=== PATIENT | male | born 1985 | race Caucasian/White ===

== ENCOUNTER 2024-10-09 10:58 | Outpatient (CLI) | payer BC, SELFPAY | END 2024-10-09 10:59 | disposition home or self-care (01) | PROVIDERS: Visit Provider Family Medicine | DX: E29.1 Testicular hypofunction (principal) | CPT/HCPCS: 84270; 84402; 84403 ==

== ENCOUNTER 2024-11-05 08:48 | Outpatient (CLI) | payer BC, SELFPAY | END 2024-11-05 08:49 | disposition home or self-care (01) | LOC: NFLDREF 11-09 18:58 | PROVIDERS: PCP Family Medicine; Visit Provider Family Medicine | DX: E29.1 Testicular hypofunction (principal) | CPT/HCPCS: 84270; 84402; 84403 ==

== ENCOUNTER 2024-11-19 08:48 | Outpatient (CLI) | payer BC, SELFPAY ==
--- NOTE | 2024-11-19 09:00 | CRLHL7_ITS ---
For Patients: As a result of the Cures Act, medical imaging exams and procedure reports are released immediately into your electronic medical record. You may view this report before your referring provider. If you have questions, please contact your health care provider. Indication: NASAL CONGESTION, DEVIATED SEPTUM Technique: Performed without IV contrast Comparison: None available Findings: Frontal sinuses: Mild mucosal thickening is present within the inferior frontal sinuses. Ethmoid sinuses: Moderate patchy opacification of the ethmoid sinuses noted bilaterally. Maxillary sinuses: Mucosal thickening within both maxillary sinuses noted along with small mucous retention cysts. The maxillary sinus drainage pathways are obstructed on both sides. Sphenoid sinuses: Mild mucosal thickening is present in both sphenoid sinuses along with a mucous retention cyst within the left sphenoid sinus measuring 1 cm. Obstructed sphenoethmoidal recesses. Nasal Cavity: Rightward curvature nasal septum. Mucous is present within the nasal cavity. Can not exclude papilloma within the left side of the nasopharynx. Mild subluxation at the TMJs. The visualized portions of the orbits, intracranial contents and upper soft tissue neck are grossly negative. Impression: 1. Bilateral sinus disease with obstruction of the sinus drainage pathways. 2. Rightward curvature of the nasal septum. Can not exclude nasal polyposis. Please note that all CT scans at this facility use dose modulation, iterative reconstruction, and/or weight-based dosing when appropriate to reduce radiation dose to as low as reasonably achievable. Dictated by Marquise Trivedi MD @ 11/19/2024 9:20:26 AM (Electronically Signed)
--- NOTE | 2024-11-19 09:15 | CRLHL7_ITS ---
For Patients: As a result of the Century Cures Act, medical imaging exams and procedure reports are released immediately into your electronic medical record. You may view this report before your referring provider. If you have questions, please contact your health care provider. Technique: Double-contrast esophagram performed after the uneventful administration of effervescent crystals and thick barium followed by thin barium. Fluoroscopy time 0.44 minutes. Indication: GERD, DYSPHAGIA, REFLUX Comparison: None. Findings: Esophagus: Normal morphology and motility. No stricture or mass. Gastroesophageal reflux: Spontaneous reflux noted. No hernia. Impression: Spontaneous gastroesophageal reflux. Normal motility. No hernia. No acute inflammation. Dictated by Marquise Trivedi MD @ 11/19/2024 11:23:55 AM (Electronically Signed)
== END 2024-11-19 08:49 | disposition home or self-care (01) ==
LOC: CT 08:49
PROVIDERS: PCP Family Medicine; Visit Provider Otolaryngology
DX: R09.81 Nasal congestion (principal); J34.2 Deviated nasal septum; R13.10 Dysphagia, unspecified; K21.9 Gastro-esophageal reflux disease without esophagitis
CPT/HCPCS: 70486; 74221

== ENCOUNTER 2024-12-15 12:48 | Outpatient (CLI) | payer BC, SELFPAY ==
--- NOTE | 2025-01-05 11:37 | W.PM.SLEEP ---
Sleep Study Details Details Interpreting Provider: Josie Date of Sleep Study: 12/15/24 Sleep Study Details: STUDY TYPE:? Home unattended ? BMI:? 44.3 ORDERING PROVIDER:? Josie INDICATION:? Concerned about sleep apnea ? SLEEP SUMMARY:? 309 minutes monitored RESPIRATORY SUMMARY:? AHI 32.1 per rule 1A, 24.3 per CMS guideline Low oxygen 82 4.8% of study oxygen less than 90% Snoring 65.5% PERIODIC LIMB MOVEMENTS OF SLEEP:? Not recorded CARDIAC:? Range 65-109, mean 85.6 beats per minute IMPRESSION:? Severe obstructive sleep apnea RECOMMENDATION: Weight loss is recommended. In addition would recommend an AutoSet CPAP pressure 4-17.
== END 2024-12-15 12:49 | disposition home or self-care (01) ==
LOC: SLEEP 12:48
PROVIDERS: PCP Family Medicine; Visit Provider Otolaryngology
DX: G47.33 Obstructive sleep apnea (adult) (pediatric) (principal)
CPT/HCPCS: 95806

== ENCOUNTER 2025-02-01 09:30 | Outpatient (CLI) | payer BC, SELFPAY | END 2025-02-01 09:31 | disposition home or self-care (01) | LOC: LKVREF 09:32 | PROVIDERS: PCP Family Medicine; Visit Provider Family Medicine | DX: Z01.818 Encounter for other preprocedural examination (principal) | CPT/HCPCS: 80048 ==

== ENCOUNTER 2025-02-12 08:31 | Day surgery (SDC) | payer BC, SELFPAY ==
[2025-02-12] VITALS (16 sets, daily range): BP systolic 104–144; BP diastolic 59–111; PULSE 80–100; RESP 13–26; TEMP 36.4–37.2; O2SAT 94–98; BMI 48.4
[2025-02-12] MEDS: LACTATED RINGERS 1000 ML 1,000 ML 100 ML IV (08:40)
[2025-02-12] MEDS: OXYMETAZOLINE 0.05% NASAL SPRAY 2 SPRAY NOSTRIL-B (09:30)
[2025-02-12] MEDS: SODIUM CHLORIDE 0.9 % (FLUSH) 10 ML SYRINGE IVF (10:16)
[2025-02-12] MEDS: MUPIROCIN 1 GM PACKET 1 APPLIC TOPICAL (10:32)
[2025-02-12] MEDS: AYR SALINE NASAL GEL 1 APPLIC NOSTRIL-B (10:33)
[2025-02-12] MEDS: BUPIVACAINE 0.5%/EPINEPHRINE 0.9 MG (30.9 ML) INJECTION (10:51)
--- NOTE | 2025-02-12 11:02 | P.ENTPROC_ITS ---
Procedure Note Date of procedure: 02/12/25 Procedure: Preop diagnosis chronic bilateral ethmoid and maxillary sinus disease, deviated septum, right inferior turbinate hypertrophy Postoperative diagnosis same Procedure endoscopic bilateral maxillary antrostomies with tissue removal, end oscopic bilateral complete ethmoidectomies, nasal septoplasty, submucous partial resection right inferior turbinate Note that image guidance and 0 degree endoscopy was used throughout the procedure Under general endotracheal anesthesia patient was prepped draped usual fashion and the nose decongested with cocaine pledgets and injected. A right hemitransfixion incision was made left anterior and posterior tunnels were created. A vertical incision was made through the cartilage and a right posterior tunnel created. Posterior deflected portions of septal bone were resected and a large piece trimmed returned to intraseptal space. The large left premaxillary wing deformity was removed with a chisel. Normal amount of cartilage was left anteriorly as there was no resection therefore dorsal and tip support. The hemitransfixion was closed with 2 4-0 chromic sutures. A stab incision was made in the anterior of the right inferior turbinate a tunnel created with a Sony dissector. The raudel bone was outfractured and a conservative anterior submucous resection performed. The Coblation was used for hemostasis and to cauterize intramurally along the inferior 10%. The inferior 4th of the left uncinate process was taken down exposing natural ostium to maxillary sinus which was occluded by polyp tissue. This polyp tissue was removed and 9 mm antrostomy created. Additional tissue was removed from the floor of the sinus with an up-biting ethmoid forceps. The ethmoid bulla was taken down and dissection carried out in anterior to posterior direction removing a moderate to large amount of polypoid tissue. Both of these procedures were repeated on the right side in identical fashion with identical findings. Silastic stents were secured on either side the septum with a 3-0 nylon and Merocel packing was placed in the middle meatus on each side. Prior to extubation there is a moderate amount of bleeding well the patient was fighting the tube. Additional dissolvable packing was placed prior to extubation on each side. Specimens were sent to pathology. Blood loss was 20 mL. Surgeon: Ezekiel Galindo MD
--- NOTE | 2025-02-12 11:23 | P.ANES_ITS ---
Anesthesia Charges Start Date/Time Anesthesia Start Date: 02/12/25 Anesthesia Start Time: 10:05 Stop Date/Time Anesthesia Stop Date: 02/12/25 Anesthesia Stop Time: 11:09 Coding CPT Codes CPT Codes: ANESTH NOSE/SINUS SURGERY - 98952 ([id number]) P3 - PATIENT W/SEVERE SYS DISEASE, QK - CHEMICAL LABORATORY TECHNICIAN 2-4 CNCRNT ANES PROC, QX - HEALTH WORKER SVC W/ MD MED DIRECTION
--- NOTE | 2025-02-12 11:23 | W.ANESCHARGE ---
Anesthesia Charges Start Date/Time Anesthesia Start Date: 02/12/25 Anesthesia Start Time: 10:05 Stop Date/Time Anesthesia Stop Date: 02/12/25 Anesthesia Stop Time: 11:09 Coding CPT Codes CPT Codes: ANESTH NOSE/SINUS SURGERY - 75455 ([id number]) P3 - PATIENT W/SEVERE SYS DISEASE, QK - UTILITY LOCATOR 2-4 CNCRNT ANES PROC, QX - CARDIOLOGY ASSOCIATE SVC W/ MD MED DIRECTION
--- NOTE | 2025-02-12 11:56 | SUR.PHASEI ---
patient met discharge criteria per anesthesia
--- NOTE | 2025-02-12 12:14 | P.ANES_ITS ---
Anesthesia Charges Start Date/Time Anesthesia Start Date: 02/12/25 Anesthesia Start Time: 10:05 Stop Date/Time Anesthesia Stop Date: 02/12/25 Anesthesia Stop Time: 11:09 Coding CPT Codes CPT Codes: ANESTH NOSE/SINUS SURGERY - 79057 ([id number]) P3 - PATIENT W/SEVERE SYS DISEASE, QK - FIRE BOAT ENGINEER 2-4 CNCRNT ANES PROC, QX - LISW SVC W/ MD MED DIRECTION
--- NOTE | 2025-02-12 12:14 | W.ANESCHARGE ---
Anesthesia Charges Start Date/Time Anesthesia Start Date: 02/12/25 Anesthesia Start Time: 10:05 Stop Date/Time Anesthesia Stop Date: 02/12/25 Anesthesia Stop Time: 11:09 Coding CPT Codes CPT Codes: ANESTH NOSE/SINUS SURGERY - 07286 ([id number]) P3 - PATIENT W/SEVERE SYS DISEASE, QK - SENIOR PHP WEB DEVELOPER 2-4 CNCRNT ANES PROC, QX - SALES ACCOUNT REPRESENTATIVE SVC W/ MD MED DIRECTION
[2025-02-12] MEDS: IBUPROFEN 200 MG TABLET PO (12:22)
== END 2025-02-12 13:24 | disposition home or self-care (01) ==
LOC: OR 08:32
PROVIDERS: PCP Family Medicine; Visit Provider Otolaryngology
PROC: (CPT 31231; principal; 2025-02-12 09:45)
DX: J34.2 Deviated nasal septum (principal); J32.2 Chronic ethmoidal sinusitis; J32.0 Chronic maxillary sinusitis; J34.3 Hypertrophy of nasal turbinates
CPT/HCPCS: 31267; 31255; 30520; 30140; 00160; 88305; 88311; A9270; J0330; J1100; J2250; J2405; J2704; J3010; J3490; J7120

== ENCOUNTER 2025-05-16 18:01 | Inpatient (IN) | payer BC, SELFPAY ==
--- OUTSIDE RECORDS SUMMARY | 2025-01-22 04:29 | XMS_ITS | Continuity of Care Document ---
Author Organization [facility] Address [address] [address] [place] [address] Phone Care Team Providers Care Community Relations Assistant Name Role Phone Selwyn Reina MD, Camilo Unavailable Unavailabl e Allergies, Adverse Reactions, Alerts Substance Reaction Status Criticality No Known Allergies Active No Inform ation Medications Medication Instructions Dosage Effective Dates (start - stop) Status Comments omeprazole 40 mg capsule,delayed release take 1 capsule by oral route 2 times every day before a meal 40 MG - Active Advil 200 mg tablet take 1 tablet by ora l route every 6 hours as needed with food 200 MG - Active omeprazole 20 mg tablet,delayed release take 1 capsule by oral route every day 1 capsule - Active Procedures Procedure Date New Level 4 Moderate Advance Directives Directive Yes / No Effective Date File Name No Information Encounters Encounter Description Practice Location Reason(s) For Visit Diagnoses Date Provider Providers Copied on Encounter [facility], [address] [address], [place], [id number], [place] tel:[phone] [facility] No Information 5 Selwyn Page. [address] [facility], [place], [id number] , [place]. tel:[phone] New Level 4 Moderate [facility], [address] [address], [place], [place], [address], [place] tel:[phone] [facility] GI Symptoms or Concerns (chief complaint) Chronic GERDBurpingEsophage al dysphagia Aminata Buckner. [address] [facility], [facility] [address], [place], [place], [address] , [place]. tel:[phone] Referring Provider: Ezekiel Sarkar MD, [address] [place], [address]. tel:[phone] [facility], [address] [address], [place], [place], [address], [place] tel:[phone] [facility] GI Symptoms or Concerns (chief complaint) No Information 5 Aminata Buckner. [address] [facility], [facility] [address], [place], [place], [id number] , [place]. tel:[phone] [facility], [address] [address], [place], [place], [address], [place] tel:[phone] [facility] No Information Selwyn Page. [address] [facility], [facility] [address], [facility] [place] [place], [address] , [place]. tel: [phone] Family History Family Member Type Diagnosis Age At Onset Mother Problem Diabetes mellitus Immunizations Vaccine Date Status Comments tetanus toxoid, reduced diphtheria toxoid, and acellular pertussis vaccine, adsorbed administered Note: [facility] bi-direct ional interface ; Source: Other Registry Payers Payer name Insurance type Covered constitution party ID Authoriza tion(s) [facility] [id number] Social History Type Description Quantity Date Captured Comments Sex Male Smoking Status No Information Chief Complaint And Reason For Visit No Information Reason For Referral Reason For Referral No Information History Of Present Illness Encounter Date Complaint History Of Prese nt Illness GI Symptoms or Concerns This is a 39-year-old male who presents as a new patient for acid reflux disease. Patient has a longstanding history of acid reflux for more than 5 years. Patient reports reflux on a regular basis in the morning as well as in the evening. Patient also reports burping, belching, regurgitation. Patient does note food getting stuck in the throat region which she sometimes has to regurgitate. Patient denies any abdominal pain, nausea, vomiting. There is no recent weight loss. Patient denies any changes in his bowel habits. There is no hematochezia or melena. There is no family history of colon cancer or esophageal cancer. Patient is otherwise doing well and reports no other medical problems. He denies smoking, alcohol, marijuana usage. Patient is currently on omeprazole 20 milligrams once daily without relief of his symptoms. He did have an upper endoscopy while in [place] about 1-2 years ago which showed possible esophagitis. Patient did have a recent esophagram done at [facility] GI Symptoms or Concerns Functional Status Date Functional Assessmen t No Information Instructions Date Instruction Additional Infor [facility] -start omeprazole 40 mg twice daily-attain recent EGD-gerd diet and liefstyle changes discussed with patient-pt wishes to defer repeat egd at this point-f/u in 3 months. if sx continue, will proceed with egd Related to Chronic GERD Assessments Type Assessment Date No Information Patient Care Teams Name Effective Dates (start - stop) Status Members No Information
--- OUTSIDE RECORDS SUMMARY | 2025-01-22 04:29 | XMS_ITS | Continuity of Care Document ---
Author Organization [facility] Address [address] [address] [place] [address] Phone Care Team Providers Care Main Line Assembler Name Role Phone Selwyn Reina MD, Camilo [...] Diagnoses Date Provider Providers Copied on Encounter [facility], [address] [address], [place], [id number], [place] tel:[phone] [facility] No Information 5 Selwyn Page. [address] [facility], [address], [place], [id number] , [place]. tel:[phone] New Level 4 Moderate [facility], [address] [address], [place], [place], [address], [place] tel:[phone] [facility] GI Symptoms or Concerns (chief complaint) Chronic GERDBurpingEsophage al dysphagia Aminata Buckner. [address] [facility], [facility] [[email or web address] [address], [place], [place], [id number] , [place]. tel:[phone] Referring Provider: Ezekiel Sarkar MD, [address] [place], [address]. tel:[phone] [facility], [address] [address], [place], [place], [address], [place] tel:[phone] [facility] GI Symptoms or Concerns (chief complaint) No Information 5 Aminata Buckner. [address] [facility], [facility] [[email or web address] [address], [place], [place], [address] , [place]. tel:[phone] [facility], [address] [address], [place], [place], [address], [place] tel:[phone] [facility] No Information Selwyn Page. [address] [facility], [facility] [[email or web address] [address], [facility] [place] [place], [id number] , [place]. tel: [phone] Family History Family Member Type Diagnosis Age At Onset Mother Problem Diabetes mellitus Immunizations Vaccine Date Status Comments tetanus toxoid, reduced diphtheria toxoid, and acellular pertussis vaccine, adsorbed administered Note: [facility] bi-direct ional interface ; Source: Other Registry Payers Payer name Insurance type Covered constitution party ID Authoriza tion(s) [facility] [id number] Social History Type Description Quantity Date Captured [...] did have an upper endoscopy while in [place] about 1-2 years ago which showed possible esophagitis. Patient did have a recent esophagram done at [facility] GI Symptoms or Concerns Functional Status Date Functional Assessmen t No Information Instructions Date Instruction Additional Infor [facility] -start omeprazole 40 mg twice daily-attain recent EGD-gerd diet and liefstyle changes discussed with patient-pt wishes to defer repeat egd at this point-f/u in 3 months. if sx continue, will proceed with egd Related to Chronic GERD Assessments Type Assessment Date No Information Patient Care Teams Name Effective Dates (start - stop) Status Members No Information
--- OUTSIDE RECORDS SUMMARY | 2025-05-13 09:18 | XMS_ITS | Continuity of Care Document ---
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 Name Role Phone Mark Lozano MD Unavailable Unavailable Allergies, Adverse Reactions, Alerts Substance Reaction Status Criticality No Known Allergies Active No Inform ation Medications Medication Instructions Dosage Effective Dates (start - stop) Status Comments Vitamin D3 25 mcg (1,000 unit) capsule take 1 capsule by oral route every day 1 capsule - Active gabapentin 800 mg tablet take 1 tablet by oral route 3 times every day 800 MG - Active methocarbamol 750 mg tablet take 1 tablet by oral route every 8 hours 750 MG - Active DME BLOOD PRESSURE MONITOR - Active TESTOSTERONE (unknown strength) apply by transdermal route every day (1 tube = 50 mg) in the morning to shoulders and/or upper arms divided evenly between areas Not Available - Active Procedures Procedure Date SYST BP LT 130 MM HG DIAST BP < 80 MM HG PREV VISIT, EST, AGE 40-64 SYST BP 140+ MM HG6 IT DIAST BP 90+ MM HG OFFICE/OUTPATIENT VISIT, EST SYST BP GE 130 - 139MM HG DIAST BP 80-89 MM HG OFFICE/OUTPATIENT VISIT, EST SYST BP GE 130 - 139MM HG DIAST BP 80-89 MM HG OFFICE/OUTPATIENT VISIT, EST DIAST BP 90+ MM HG SYST BP 140+ MM HG6 IT OFFICE/OUTPATIENT VISIT, EST Telehealth Video Visit FAMILY PSYTX W/PATIENT Telehealth Video Visit PSYTX PT&/FAMILY 60 MINUTES Telehealth Video Visit PSYTX PT&/FAMILY 60 MINUTES Telehealth Video Visit PSYTX PT&/FAMILY 45 MINUTES Telehealth Video Visit PSYTX PT&/FAMILY 60 MINUTES Periodontal maintenance Telehealth Audio Visit OFFICE/OUTPATIENT VISIT, EST OFFICE/OUTPATIENT VISIT, EST Encounter Error OFFICE/OUTPATIENT VISIT, EST OFFICE/OUTPATIENT VISIT, EST Telehealth Audio Visit OFFICE/OUTPATIENT VISIT, EST PSYTX PT&/FAMILY 45 MINUTES OFFICE/OUTPATIENT VISIT, EST Telehealth Audio Visit Telehealth Audio Visit Telehealth Audio Visit OFFICE/OUTPATIENT VISIT, EST Telehealth Audio Visit OFFICE/OUTPATIENT VISIT, EST PSYTX PT&/FAMILY 60 MINUTES Resin-1 surface, posterior Treatment Complete Resin-1 surface, posterior Resin-1 surface, posterior Periodontal Re-eval OFFICE/OUTPATIENT VISIT, EST ELECTROCARDIOGRAM, WITH INTERP & REPORT Telehealth Audio Visit OFFICE/OUTPATIENT VISIT, EST PSYTX PT&/FAMILY 45 MINUTES Post Op Check Telehealth Audio Visit OFFICE/OUTPATIENT VISIT, EST Resin-1 surface, posterior Treatment Complete Resin-1 surface, posterior Perio scale&root pln-4+per quad 021 Perio scale&root pln-4+per quad 021 Perio scale&root pln-4+per quad 021 Perio scale&root pln-4+per quad 021 Intraoral Full Mouth Xrays Comp oral eval-new/estab pat No Sealant Needed/Excluded PSYTX PT&/FAMILY 45 MINUTES Telehealth Audio Visit OFFICE/OUTPATIENT VISIT, EST OFFICE/OUTPATIENT VISIT, EST Telehealth Audio Visit PSYCH DIAG EVAL W/MED SRVCS Telehealth Audio Visit OFFICE/OUTPATIENT VISIT, EST PSYCH DIAGNOSTIC EVALUATION OFFICE/OUTPATIENT VISIT, EST OFFICE/OUTPATIENT VISIT, EST [facility] PREV VISIT, EST, AGE 18-39 Charge for additional DX capture only De Telehealth Audio Visit OFFICE/OUTPATIENT VISIT, EST [facility] Telehealth Video Visit OFFICE/OUTPATIENT VISIT, NEW Advance Directives Directive Yes / No Effective Date File Name No Information Encounters Encounter Description Practice Location Reason(s) For Visit Diagnoses Date Provider Providers Copied on Encounter Jai Silva e, [address] [address], [place], [place], [id number] , [place] tel:[phone] [facility] No Information 5 Marta Flores. [address] [place], [place], [id number], [place]. [phone] PREV VISIT, EST, AGE 40-64 [facility], [address], [place], [place], [address] , [place] tel: [phone] [place] preventive exam (chief complaint) Body mass index (BMI) 40.0-44.9, adultHypogona dism in maleLow testosteroneE rectile dysfunction, unspecified erectile dysfunction typeOther obesity due to excess caloriesBack pain with history of spinal surgeryEssent ial hypertensionE ncounter for adult health check-up 4 Marta Flores. [address] [place] [address], [id number], [place]. tel:[phone] Referring Provider: Mark Lozano, [address] [place] [address], [address]. [phone] OFFICE/OUTPA TIENT VISIT, EST [facility], [address], [place], [place], [address] , [place] tel:[phone] Wilfredo acute illness (chief complaint) Erectile dysfunction, unspecified erectile dysfunction typeUrinary dribblingPain , joint, knee, leftGallstone sOther obesity due to excess caloriesBody mass index (BMI) 45.0-49.9, adultElevated blood pressure reading 4 Elam-Katty ones Eulalio. [address] [place] [address], [id number], [place]. [phone] Referring Provider: Eulalio Elam-Katty ones, [address] [place] [address], [address]. tel:[phone] [facility], [address], [place], [place], [address] , [place] tel:[phone] Wilfredo Gallstones 3 ELENA OWUSU. [address] [place] [address], [id number], [place]. tel:[phone] Referring Provider: FRANCOISE Vazquez, [address] [place] [address], [address]. tel:[phone] OFFICE/OUTPA TIENT VISIT, EST [facility], [address], [place], [place], [address] , [place] tel:[phone] Wilfredo gallstones/vi t d def (chief complaint) Vitamin D deficiencyPer sandra history of gallstones 3 ELENA OWUSU. [address] [place] [address], [id number], [place]. tel:[phone] Referring Provider: FRANCOISE PARKER E, [address] [place] [address], [address]. tel:[phone] OFFICE/OUTPA TIENT VISIT, EST [facility], [address], [place], [place], [address] , [place] [phone] [place] Abdominal Pain / GERD (chief complaint) Symptomatic cholelithiasi sLow testosterone in male 3 Annel Bruno. [address] [place] [address], [id number], [place]. tel:[phone] Referring Provider: Kiana Hi, [address] [place] [address], [address]. tel:[phone] [facility], [address], [place], [place], [address] , [place] [phone] [place] PrediabetesVi tamin D deficiency 3 Joshua Lares. [address] [place] [address], [id number], [place]. tel:[phone] OFFICE/OUTPA TIENT VISIT, EST [facility], [address], [place], [place], [id number] , [place] [phone] Wilfredo Referrals (chief complaint) Morbid obesityBack pain with history of spinal surgeryEssent ial hypertensionL ow testosterone in malePeriphera l polyneuropath y Oct- 3 Joshua Lares. [address] [place] [address], [id number], [place]. tel:[phone] Referring Provider: Luda Lewis, [address] [facility], [place], [address]. tel:[phone] [facility], [address], [place], [place], [address] , [place] tel:[phone] [place] Low testosterone in maleS/P vasectomy 2 ELENA OWUSU. [address] [place], [place], [id number], [place]. tel:[phone] [facility], [address], [place], [place], [address] , [place] tel: [phone] [place] No Information 1 Joshua Lares. [address] [place], [place], [address], [place]. tel:[phone] FAMILY PSYTX W/PATIENT [facility], [address], [place], [place], [address] , [place] tel: [phone] [place] Anxiety and depression Mar- 1 LIZZY SOLORIO. [address] [place], [place], [id number], [place]. tel:[phone] PSYTX PT&/FAMILY 60 MINUTES [facility], [address], [place], [place], [address] , [place] tel:[phone] [place] Anxiety and depression Mar- 1 LIZZY SOLORIO. [address] [place], [place], [address], [place]. tel:[phone] PSYTX PT&/FAMILY 60 MINUTES [facility], [address], [place], [place], [address] , [place] [phone] [place] Anxiety and depression Feb- 1 LIZZY SOLORIO. [address], [place], [place], [id number], [place]. tel:[phone] PSYTX PT&/FAMILY 45 MINUTES [facility], [address], [place], [place], [address] , [place] tel:[phone] [place] Anxiety and depression 1 LIZZY SOLORIO. [address] [place], [place], [address], [place]. tel:[phone] Referring Provider: OSMIN BALL, [address] [place], [address]. tel:[phone] PSYTX PT&/FAMILY 60 MINUTES [facility], [address], [place], [place], [address] , [place] tel:[phone] [place] Anxiety and depression 1 LIZZY SOLORIO. [address] [place], [place], [address], [place]. tel:[phone] Referring Provider: OSMIN BALL, [address] [place], [address]. tel:[phone] [facility], [address], [place], [place], [address] , [place] [phone] [facility] Encounter for dental exam and cleaning w/o abnormal findings 1 Sky James. [address] [place], [id number], [place]. tel:[phone] Referring Provider: MANI MANCINI, [address], [address]. tel:[phone] OFFICE/OUTPA TIENT VISIT, EST [facility], [address], [place], [place], [address] , [place] tel:[phone] [place] MED CHECK (chief complaint) Anxiety and depression 1 MICHAEL MITCHELL. [address] [place], [place], [address], [place]. tel:[phone] Referring Provider: STEPHEN RODRIGUEZ, [address] [place], [address]. tel:[phone] OFFICE/OUTPA TIENT VISIT, EST [facility], [address], [place], [place], [address] , [place] tel:[phone] Wilfredo chronic low back pain (chief complaint)obe se (chief complaint) Back pain with history of spinal surgeryElevat ed BP without diagnosis of hypertensionM orbid obesity 1 ELENA OWUSU. [address] [place], [place], [id number], [place]. tel:[phone] Referring Provider: FRANCOISE Vazquez, [address] [place] [address], [address]. tel:[phone] [facility], [address], [place], [place], [address] , [place] [phone] [place] No Information 1 LIZZY SOLORIO. [address] [place], [place], [id number], [place]. tel:[phone] OFFICE/OUTPA TIENT VISIT, EST [facility], [address], [place], [place], [address] , [place] tel:[phone] Wilfredo low back pain chronic (chief complaint) Low back pain at multiple sitesBack pain with history of spinal surgeryOther specified postprocedura l states 1 ELENA OWUSU. [address] [place], [place], [address], [place]. tel:[phone] Referring Provider: FRANCOISE Vazquez, [address] [place] [address], [address]. tel:[phone] OFFICE/OUTPA TIENT VISIT, EST [facility], [address], [place], [place], [address] , [place] tel:[phone] Ran Anxiety (chief complaint)dep ression (chief complaint) Anxiety and depression 1 MICHAEL MITCHELL. [address] [place], [place], [address], [place]. tel:[phone] Referring Provider: STEPHEN RODRIGUEZ, [address] [place], [address]. tel:[phone] OFFICE/OUTPA TIENT VISIT, EST [facility], [address], [place], [place], [address] , [place] tel:[phone] [place] obesity (chief complaint) Morbid obesityEssent ial hypertension 1 ELENA OWUSU. [address] [place], [place], [address], [place]. tel:[phone] Referring Provider: FRANCOISE Vazquez, [address] [place] [address], [address]. tel:[phone] PSYTX PT&/FAMILY 45 MINUTES [facility], [address], [place], [place], [address] , [place] tel:[phone] [place] Anxiety and depression 1 LIZZY SOLORIO. [address] [place], [place], [address], [place]. tel:[phone] Referring Provider: OSMIN BALL, [address] [place], [address]. tel:[phone] OFFICE/OUTPA TIENT VISIT, EST [facility], [address], [place], [place], [address] , [place] [phone] [place] obese (chief complaint) Morbid obesity 1 ELENA OWUSU. [address] [place], [place], [address], [place]. tel:[phone] Referring Provider: FRANCOISE Vazquez, [address] [place], [address]. [phone] OFFICE/OUTPA TIENT VISIT, EST [facility], [address], [place], [place], [address] , [place] tel:[phone] [place] obese (chief complaint) Morbid obesityElevat ed BP without diagnosis of hypertension Apr-2 1 ELENA OWUSU. [address] [place], [place], [address], [place]. tel:[phone] Referring Provider: FRANCOISE Vazquez, [address] [place], [address]. [phone] OFFICE/OUTPA TIENT VISIT, EST [facility], [address], [place], [place], [address] , [place] tel:[phone] [place] med check (chief complaint) Anxiety and depression Apr- 1 MICHAEL MITCHELL. [address] [place], [place], [address], [place]. tel:[phone] Referring Provider: STEPHEN RODRIGUEZ, [address] [place], [address]. tel:[phone] PSYTX PT&/FAMILY 60 MINUTES [facility], [address], [place], [place], [address] , [place] tel:[phone] [place] Anxiety and depression Apr- 1 LIZZY SOLORIO. [address] [place], [place], [id number], [place]. tel:[phone] Referring Provider: OSMIN BALL, [address] [place], [address]. tel:[phone] [facility], [address], [place], [place], [address] , [place] tel:[phone] [facility] Dental buddhist status Apr-0 1 ADDIS SINGLETON. [address] [place] [address], [place], [place], [id number], [place]. tel:[phone] Referring Provider: HECTORJULIANN ADDIS, [address] [place] [address], [place], [address]. tel:[phone] [facility], [address], [place], [place], [address] , [place] tel:[phone] [facility] Dental buddhist status 1 KAISER NEGRON. [address] [place] [address], [address] [address], [place], [place], [address], [place]. tel:[phone] Referring Provider: MIGDALIA SAAB, [address] [place] [address], [place], [address]. tel:[phone] [facility], [address], [place], [place], [address] , [place] [phone] [facility] No Information 1 KAISER NEGRON. [address] [place] [address], [id number], [place]. tel:[phone] Referring Provider: MIGDALIA SAAB, [address] [place] [address], [place], [address]. tel:[phone] OFFICE/OUTPA TIENT VISIT, EST [facility], [address], [place], [place], [address] , [place] [phone] Wilfredo morbid obesity (chief complaint) Morbid obesityElevat ed BP without diagnosis of hypertension 1 ELENA OWUSU. [address] [place] [address], [id number], [place]. tel:[phone] Referring Provider: FRANCOISE Vazquez, [address] [place] [address], [address]. tel:[phone] OFFICE/OUTPA TIENT VISIT, EST [facility], [address], [place], [place], [address] , [place] tel:[phone] [place] med visit (chief complaint) Anxiety and depression Sep- 1 MICHAEL MITCHELL. [address] [place], [place], [id number], [place]. tel:[phone] Referring Provider: STEPHEN RODRIGUEZ, [address] [place], [address]. tel:[phone] PSYTX PT&/FAMILY 45 MINUTES [facility], [address], [address] , [place] tel:[phone] [place] Anxiety and depression 1 LIZZY SOLORIO. [address] [place], [place], [address], [place]. tel:[phone] Referring Provider: OSMIN BALL, [address] [place], [address]. tel:[phone] [facility], [address], [place], [place], [address] , [place] tel:[phone] [facility] Acute apical periodontitis of pulpal origin 1 Naina Garsia. [facility] [place], [place], [id number], [place]. tel:[phone] Referring Provider: Sun Chew, [address] [place] [address], [address]. tel:[phone] OFFICE/OUTPA TIENT VISIT, EST [facility], [address], [place], [place], [address] , [place] tel:[phone] [place] obese abdomen (chief complaint) Morbid obesity 1 ELENA OWUSU. [address] [place], [place], [address], [place]. tel:[phone] Referring Provider: FRANCOISE Vazquez, [address] [place], [address]. tel:[phone] [facility], [address], [place], [address] , [place] [phone] [facility] Dental buddhist status 1 Naina Garsia. [address] [place] [address], [id number], [place]. tel:[phone] Referring Provider: Sun Chew, [address] [place] [address], [address]. tel:[phone] [facility], [address], [place], [place], [address] , [place] tel:[phone] [facility] Dental buddhist status 1 Rashaundiego Sun. [address] [place] [address], [id number], [place]. tel:[phone] Referring Provider: Sun Chew, [address] [place] [address], [address]. tel:[phone] [facility], [address] [place] [address], [id number] , [place] [phone] [facility] Encounter for dental exam and cleaning w/o abnormal findings 1 Neo Mitchell. [address] [place] [address], [id number], . tel:[phone] Referring Provider: MIGDALIA SAAB, [address] [place] [address], [address]. tel:[phone] [facility], [address], [place], [address] , [place] [phone] [facility] Encounter for dental exam and cleaning w/o abnormal findings 1 Larson Stephen. [address] [place] [address], [id number], . tel:[phone] Referring Provider: Sun Chew, [address] [place] [address], [address]. tel:[phone] [facility], [address], [place], [place], [address] , [place] [phone] [facility] No Information 1 Naina Garsia. [address] [place], [place], [address], [place]. tel:[phone] Referring Provider: Sun Chew, [address] [place], [address]. tel:[phone] PSYTX PT&/FAMILY 45 MINUTES [facility], [address], [place], [place], [address] , [place] [phone] [place] Anxiety and depression 1 LIZZY SOLORIO. [address] [place], [place], [id number], [place]. tel:[phone] Referring Provider: OSMIN BALL, [address] [place], [address]. tel:[phone] OFFICE/OUTPA TIENT VISIT, EST [facility], [address], [place], [place], [address] , [place] [phone] [place] med visit (chief complaint) Anxiety and depression 1 MICHAEL MITCHELL. [address] [place], [place], [address], [place]. tel:[phone] Referring Provider: STEPHEN RODRIGEUZ, [address] [place], [address]. tel:[phone] OFFICE/OUTPA TIENT VISIT, EST [facility], [address], [place], [place], [address] , [place] tel:[phone] [place] Anxiety / Depression (chief complaint) Anxiety and depressionLow testosterone in maleParesthes iaMorbid obesity 1 Joshua Lares. [address] [place], [place], [address], [place]. tel:[phone] Referring Provider: Luda Lewis, [address] [place], [address]. tel:[phone] PSYCH DIAG EVAL W/MED SRVCS [facility], [address], [place], [place], [address] , [place] [phone] [place] Irritable (chief complaint) Anxiety and depression 1 MICHAEL MITCHELL. [address] [place], [place], [id number], [place]. tel:[phone] Referring Provider: STEPHEN RODRIGUEZ, [address] [place], [address]. tel:[phone] OFFICE/OUTPA TIENT VISIT, EST [facility], [address] [facility] [address], [place], [place], [address] , [place] [phone] [place] Anxiety / Depression (chief complaint) Anxiety and depressionLow testosterone in male 1 ELENA OWUSU. [address] [place], [place], [address], [place]. tel:[phone] Referring Provider: FRANCOISE Vazquez, [address] [place], [address]. tel:[phone] PSYCH DIAGNOSTIC EVALUATION [facility], [address], [place], [place], [address] , [place] [phone] [place] Intermittent explosive disorderMood disorder 1 LIZZY SOLORIO. [address] [place], [place], [address], [place]. tel:[phone] Referring Provider: OSMIN BALL, [address] [place], [address]. tel:[phone] OFFICE/OUTPA TIENT VISIT, EST [facility], [address] [facility] [place], [place], [address] , [place] tel:[phone] [place] Anxiety / Depression (chief complaint) Secondary male hypogonadismA nxiety and depressionPar esthesiaMorbi d obesity 0 Joshua Lares. [address] [place] [address], [id number], [place]. tel:[phone] Referring Provider: Luda Lewis, [address] [place] [address], [address]. tel:[phone] OFFICE/OUTPA TIENT VISIT, EST [facility], [address], [place], [place], [address] , [place] tel:[phone] [place] Anxiety / Depression (chief complaint)kirit vated bp (chief complaint) Anxiety and depressionEle vated BP without diagnosis of hypertensionL ow testosterone in maleHeadache disorder 0 ELENA OWUSU. [address] [place] [address], [id number], [place]. tel:[phone] Referring Provider: FRANCOISE Vazquez, [address] [place] [address], [address]. tel:[phone] [facility], [address], [place], [place], [address] , [place] [phone] [place] No Information 0 ELENA OWUSU. [address] [place] [address], [id number], [place]. tel:[phone] [facility], [address], [place], [place], [address] , [place] tel:[phone] [place] palpitations (chief complaint) Psychosocial stressors 0 FEROZ NI. [address] [place], [place], [address], [place]. tel:[phone] Referring Provider: LAST REDMAN, [address] [place], [address]. tel:[phone] PREV VISIT, EST, AGE 18-39 [facility], [address], [place], [place], [address] , [place] tel: [phone] [place] preventive exam (chief complaint) Physical examS/P vasectomyLow testosterone in maleParesthes iaElevated BP without diagnosis of hypertension 0 ELENA OWUSU. [address] [facility], [place], [place], [address], [place]. tel:[phone] Referring Provider: FRANCOISE Vazquez, [address] [place], [address]. tel:[phone] [facility], [address], [place], [place], [address] , [place] tel: [phone] [place] Secondary male hypogonadism May- 0 Joshua Lares. [address] [place], [place], [id number], [place]. tel:[phone] [facility], [address], [place], [place], [address] , [place] tel: [phone] [place] Hypogonadism male May- 0 Joshua Lares. [address] [place], [place], [address], [place]. tel:[phone] OFFICE/OUTPA TIENT VISIT, EST [facility], [address], [place], [place], [address] , [place] tel: [phone] [place] Anxiety / Depression (chief complaint)Low testosterone (chief complaint) Anxiety and depressionHyp ogonadism male May- 0 Joshua Lares. [address] [place], [place], [address], [place]. tel:[phone] Referring Provider: Luda Lewis, [address] [place] [address], [address]. tel:[phone] [facility], [address], [place], [place], [address] , [place] tel: [phone] [place] palpitations (chief complaint) Psychosocial stressors May- 0 FEROZ NI. [address] [place], [place], [address], [place]. tel:[phone] [facility], [address], [place], [address] , [place] [phone] [place] Fatigue (chief complaint) Psychosocial stressors 0 FEROZ NI. [address] [place], [place], [address], [place]. tel:[phone] OFFICE/OUTPA TIENT VISIT, NEW [facility], [address], [place], [place], [address] , [place] [phone] [place] Anxiety / Depression (chief complaint) Anxiety and depressionMaj or depressive disorder, single episode, unspecifiedEs sential hypertension 0 Joshua Lares. [address] [place] [address], [id number], . tel:[phone] Referring Provider: Luda Lewis, [address] [place] [address], [address]. tel:[phone] Family History Family Member Type Diagnosis Age At Onset Problem Family history of manic-depr essive state Sister Problem Anxiety Mother Problem Diabetes mellitus Maternal aunt Problem malignant neoplasm of phary nx Problem Family history of depression Sister Problem Personalty disorder Maternal grandmother Problem malignant n eoplasm of breast in first degree relative Sister Problem manic-depressive state Immunizations Vaccine Date Status Comments Pfizer (COMIRNATY) COVID-19 - 12 and older refused Source: New Immuniza tion Record Influenza injectable trivalent 6mos and older refused Source: New Imm un[facility] Record COVID-19, mRNA, LNP-S, PF, 3 0 mcg/0.3 mL dose administered Source: Pretty rodriguez SARS-COV-2 ([employer]), 2 dose: 0, 3 weeks administered Source: Other Ashwin rodriguez Payers Payer name Insurance type Covered constitution party ID Authoriza tion(s) Aet[employer] POS II CI [id number] [facility] [id number] [facility] [id number] [employer] POS II CI [id number] Social History Type Description Quantity Date Captured Comments Alcohol Use Details Unknown Caffeine Use Details Unknown Tobacco Use Status No Information Smoking Status No Information Sex Male Sexual Orientation Straight or heterosexual Apr Gender Identity Male Chief Complaint And Reason For Visit No Information Reason For Referral Reason For Referral No Information Plan Of Treatment Date Type Action Status Goal Lifestyle education regardin g diet completed Goal Lifestyle education regardin g diet completed History Of Present Illness Encounter Date Complaint History Of Prese nt Illness Comments: Stanley torre - Patient here for annual examination, overall doing well. Patient is currently on testosterone replacement with [facility]. He was recently established with a weight loss clinic advised to get further blood work done to look for any other secondary causes of hypogonadism/low testosterone. He is currently on Ozempic with a weight loss clinic overall tolerating well. - Blood Pressure: at goal today. Goal <140/90. - Lipids: no risk factors. - Weight: Weight has been stable as per pt. - Diet: Patient currently not on a diet. On ozempic for weight loss. - Exercise: as tolerated - Smoking: Currently denies any cigarette/THC use. Denies use of e-cigarettes or vaporizers. - Alcohol Use: Currently denies any alcohol use or prior history of alcohol abuse. - AAA Screening: Not in screening. - DEXA: Not in screening. - Colonoscopy: Not in screening. - Hep c: in screening. - Skin: Patient denies any abnormal, evolving, or growing skin lesions. - Falls: Patient denies any falls or dizziness in the last 12 months. Patient currently not using any assistive devices. Home/room well lit. - Dentures: Denies. - Hearing Aids: Denies. - MPOA: Patient does not have a MPOA. - Transportation: Patient currently driving, no issues. preventive exam Men's preventive visit. The patient has weight loss and no weight gain. Marital status: Single. Relevant history is positive for alcohol use. acute illness 37-year-old male is here requesting referrals to see a specialist. Patient complains of dribbling in urination and erectile dysfunction. Patient is also complaining of left flank pain after he had the injection and his lower back. Patient is concerned about the pain. States the pain is located along the patellar region and at the back of the left knee. Denies any swelling. Patient is also complaining of gallbladder pain. States he has a history of gallstone. gallstones/vit d def Patient has gallstones, asymptomatic currently, unsure of going through with surgery, vital signs noted Abdominal Pain / GERD The locati on is right upper quadrant. The reports radiation to the shoulder. The quality of the pain is achy, dull and sharp. Associated symptoms include heartburn. Pertinent negatives include back pain, blood in stool, diarrhea, dyspnea, fever, flatulence, nausea and vomiting. Additional information: Patient presents for referral to have gallstones removed. He has had abdominal pain for a while. Spine surgeon did x-ray of the spine and found possible gallstones. Imaging done at [facility]. Referrals Pt is requesting referrals to neurology, urology, podiatry. States he has not been following with these specialist lately due to not having insurance he is requesting a new referral for these. See neurology for b/l LE numbness and tingling, chronic low back pain. Injured his back in 2008 at work, underwent spinal surgery in 2013. He was told he needs to see podiatry due to his neuropathy. Has never seen podiatry. Pt see's Urology for testosterone, groin pains s/p vasectomy in 2014. These groin pains started 6 mo ago. Stopped taking testosterone as he could not afford it w/o insurance.Requesting refill on muscle relaxant for lower back pain, seeing Chiropractor. Pain is described as a shooting intermittent pain that radiates down L leg. Rates pain 8/10. Has tried PT in the past, did not work for him. MED CHECK MED CHECK (comments) pt is doing well, stable on meds. he denies depression or manic sx. he denies side effects from meds. sleep and appetite are good. he denies si/hi or plan and agrees to be safe chronic low back pain L2-L3 [place], [place] legs L>Rno recent injuriesobesedenies loss urine/bowel functionbp noted obese has not lost muc h weight since last visitbp notedwhen he was in [facility] was started on meds for htn but it was discontinued as he felt dizzy - bp was low low back pain chronic chronic lo w back painsurgery 05/2014- in [place] - has rods in [id number] injury: airplane landing gear hit ptdenies loss urine/bowel functionpain worsening Anxiety (comments) pt denies anx iety sx . meds are helping. sleep is good. Anxiety depression depression (comments) pt denies depression, he denies si/hi or plan and agrees to be safe. obesity The problem is s evere. The patient is losing weight. Risk factors include sedentary lifestyle. Associated conditions include hypertension. Aggravating factors include lack of exercise. Relieving factors include medication (phentermine). Pertinent negatives include abdominal pain, acne, anhidrosis, anorexia, anxiety, cold intolerance, constipation, depression, delayed development, facial plethora, fatigue, generalized weakness, hair loss, headache, hirsutism, hoarseness, lethargy, low self-esteem, paresthesias, striae or vision changes. Additional information: was prescribed phentermine 15 mg po qd on 11/22/20 , weight today 320.6 pounds, has lost ~ 6 pounds, manual bp today 130/82, HR 108-tachycardic, asymptomatic, denies cp, sob, dizziness, lightheadedness, reviewed [place] cspmp- received phentermine 15 mg tabs # 30 on 11/22/20. obese bp at home 136/8 7, saw cardiology, was told normal evalwould like meds to help him lose weightbariatric ref authorizedalready saw nutritionmanual bp today 138/84 obese The symptoms are reported as being severe. He states the symptoms are chronic. saw cardiology, was told eval is normal, will request recordsbp at home 138/82would like meds to help lose weight med check med check (comments) pt stopped the wellbutrin because it made him more irritable. he denies depression or manic sx or psychosis. he denies si/hi or plan and agrees to be safe. sleep is good, he was found to have low testosterone levels so he is getting a testosterone shot. morbid obesity He states the sy mptoms are chronic. would like eval, meds to help lose weight, manual bp noted, ref for bariatric surgery and nutrition authorized med visit (comments) pt is doing well. he denies depression or anxiety. he is participating in op therapy and feels he is getting better and meds are helping. he denies side effects from meds, and denies si/hi or plan and agrees to be safe. he denies manic sX med visit obese abdomen He states the sy mptoms are chronic. weighing 310 pounds, diet not helping, exercise not helping eitherwould like ref to bariatric surgery med visit med visit (comments) pt is doing well in terms of his depression, zoloft is helping but he reports sexual dysfunction, he denies si/hi or pln and agrees to be safe. he denies significant anxiety. he denies side effects from meds Anxiety / Depression The patient does not present with thoughts of or suicide. Additional information: Doing well on 100mg Sertraline. Irritable Irritable (comments) PT FEELS TE NSE, IRRITABLE, ANNOYED. HE IS NOT violent, he yells. his motivation is a bit a low. his energy is good. he denies problems with sleep or appetite . he denies si/hi or plan and agrees to be safe. he gets upset easily. he feels a bit radha. he denies feelings of depression. his sx have been present for a few years. he denies side effects from meds. zoloft helped him when he took it in the morning. Anxiety / Depression This is a f ollow up visit. There is improvement of initial symptoms. The patient reports functioning as somewhat difficult. The patient presents with anxious/fearful thoughts and excessive worry but denies fatigue or thoughts of or suicide. The Anxiety / Depression is associated with irritability. Additional information: on zoloft 50 mg po qd, compliant, helping, however , still with symptoms, would like higher dose, denies si/hi, completed mri brain- wnl, saw neurology and completed NCS as well, has not been able to see urology yet re: low testosterone. Anxiety / Depression The patient does not present with thoughts of or suicide. Additional information: Patient states he's doing much better on 50mg Zoloft. Anxiety is gone. Anxiety / Depression This is a f ollow up visit. There is continuation of initial symptoms. The patient reports functioning as somewhat difficult. The patient presents with difficulty concentrating but denies decreased need for sleep. The Anxiety / Depression is associated with irritability. Additional information: irritability and anger, denies si/hi, symptoms worsening, denies hx of bipolar disorder, would like meds, seeing . elevated bp was given meds w neva in [place], it made him dizzy, does not recall namesnot checking bp at homeobesemanual bp today: 130/85labs show pre diabetes, elevated lipids, low testosteronec/o headachesmri brain in process of approval by insurancedenies double vision or worst headache of his life today palpitations preventive exam Men's preventive visit. Patient Health Questionnaire (PHQ-2) is negative. Concern(s)/Requests Detail: here for physical, labs, obese, VS noted, was in [place] x 3 months, released 04/2020 was put on hctz - made him dizzy, stopped taking medication, manual bp today 140/90, obese, would like eval for low testosterone, lab reviewed, s/p vasectomy- reports discomfort on perineal area Relevant history is negative for tobacco use, alcohol use. Anxiety / Depression The patient presents with anxious/fearful thoughts but denies thoughts of or suicide. Additional information: Reports feeling lethargic, tired, exhausted, very torres agitated. States he is having a lot of anger and needs Ativan to calm him down. He does not want to see a psychiatrist. Sister had Bipolar. He does endorse some relief with Vistaril. Low testosterone States when he was in [place] his testosterone levels were very low. He states he had an MRI of his brain done to rule out a tumor for the thyroid. palpitations Fatigue Anxiety / Depression The patient presents with anxious/fearful thoughts, depressed mood, difficulty concentrating, difficulty falling asleep, difficulty staying asleep and paranoia but denies compulsive thoughts, diminished interest or pleasure, easily startled, excessive worry, fatigue, feelings of guilt, feelings of invulnerability, increased energy, hallucinations,decreased libido, increased libido, loss of appetite, poor judgment, racing thoughts, restlessness or thoughts of or suicide. The patient's symptoms are not relieved by alcohol. The patient denies any headache and urinary frequency. Additional information: Just got out of [facility], getting a divorce, feels very stressed out and agitated. Was on pills before when he was younger. H/O ADHD and anger as juvenile. used to take Lorazepam. Denies previous bipolar DX. Was on pain pills for chronic back pain. Functional Status Date Functional Assessmen t No Information Instructions Date Instruction Additional Infor wily - continue with urol ogist- continue with current hormone replacement- blood work today Related to Low testosterone - s/p surgery- stabl e- ok for medications as needed Related to Back pain with history of spinal surgery - stable, at goal to day without any meds- Goal blood pressure < 140/90- Keep a log of your blood pressures at home- Limit sodium intake to less than 2,000mg per day- Continue with diet and exerciseLifestyle changes that may lower your blood pressure:- Weight reduction: Maintaining a normal body weight can reduce systolic blood pressure 5-20 mmHg/10kg- DASH eating plan: Diet rich in fruits vegetables, and lowfat dairy products with reduced content of saturated and total fat- 8-14 mmHg reduction- Dietary sodium restriction: Sodium intake less than 2 grams per day: 2-8 mmHg reduction- Aerobic physical activity 30 mins/day most days of the week: 4-9 mmHg- Moderation of alcohol consumption: Men <2 drinks/day; 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 <1 drink/day Related to Essential hypertension - continue with weight loss clin ic Related to Other obesity due to excess calories - keep follow-up with urologist Related to Erectile dysfunction, unspecified erectile dysfunction type Lifestyle education regarding di et Related to Body mass index [BMI] 40.0-44.9, adult A Teachback techniqu e was utilized for patient education Related to Essential hypertension DASH dietLOW salt di etMake sure to monitor your blood pressure at home and follow-up with your PCP Related to Elevated blood pressure reading Weight loss is very importantFollow-up with your PCP Related to Other obesity due to excess calories Refer to urologist t o further evaluate your symptoms Related to Erectile dysfunction, unspecified erectile dysfunction type Refer to orthopedic to evaluate and treat your symptoms Related to Pain, joint, knee, left Prescribed activity/exercise edu cation Related to Body mass index [BMI] 45.0-49.9, adult Lifestyle education regarding di et Related to Body mass index [BMI] 45.0-49.9, adult Teachback technique Related to V itamin D deficiency Urology referral inf ormation provided to patient during visit. Related to Low testosterone in male Stat general surgery referral. Avoid spicy, fried or greasy foods for now. ED precautions discussed. Contact the clinic for any new or worsening symptoms. Teachback technique utilized for patient education. Related to Symptomatic cholelithiasis Blood pressure is hi gh today.States he just came from work. Related to Essential hypertension Check labs.Urology Referral Rela ralf to Low testosterone in male Neurology and Podiat ry Referrals.Refill Gabapentin Related to Peripheral polyneuropathy Check labs Related to Morbi d obesity Ortho ReferralFollow ing with ChiropractorRefill Gabapentin and Methocarbamol Related to Back pain with history of spinal surgery Clinician provided p sychoeducation about panic attacks and stress response cycle. Clinician encouraged pt to use diaphragmatic breathing to engage in relaxation response during panic attacks, and to pursue specialty ongoing psychotherapy. Related to Anxiety and depression The patient provided verbal informed consent for the use of telehealth visit. Pt was informed that all usual policies, procedures, and payments applied, and details of the visit would be documented in their medical record. Patient expressed understanding and discussion was conducted in their preferred language. Related to Anxiety and depression The patient provided verbal informed consent for the use of telehealth visit. Pt was informed that all usual policies, procedures, and payments applied, and details of the visit would be documented in their medical record. Patient expressed understanding and discussion was conducted in their preferred language. Related to Anxiety and depression PT provides consent to telehealth visit. Related to Anxiety and depression continue WELLBUTRI X L 150 MG 1 Q AM , continue zoloft 100 mg 1 q am.rx for 30 days, 1 refills. f/u in 8 weeks or sooner if needed. Related to Anxiety and depression Teach Back Related to Anxie ty and depression Take medications as prescribed. Related to Anxiety and depression For psychiatric errol gency, call the Crisis Line @ [phone] or [phone]. Related to Anxiety and depression For someone to talk to call the Warm Line @ [phone]. Related to Anxiety and depression Pursue enjoyable act ivities and social relationships. Related to Anxiety and depression Eat a healthy diet a nd get daily low-level exercise. Related to Anxiety and depression Recommend a digital blood pressure monitor for upper arm. Do not use a wrist monitor - not accurate. Bring blood pressure monitor to office visits so the accuracy of your monitor is evaluated. Take your blood pressure 1-2 hours AFTER taking your blood pressure medication. Do not take your blood pressure before taking blood pressure meds. Keep a log of BP readings. Call if any questions or if BP high or low. Bring log to office visits. Remember, blood pressure varies. Related to Elevated BP without diagnosis of hypertension A teachback techniqu e was utilized for Patient education. Related to Elevated BP without diagnosis of hypertension A teachback techniqu e was utilized for patient education Related to Low back pain at multiple sites continue WELLBUTRI X L 150 MG 1 Q AM , continue zoloft 100 mg 1 q am.rx for 30 days, 1 refills. f/u in 6 weeks or sooner if needed. Related to Anxiety and depression Teach Back Related to Anxie ty and depression Take medications as prescribed. Related to Anxiety and depression For psychiatric errol gency, call the Crisis Line @ [phone] or [phone]. Related to Anxiety and depression For someone to talk to call the Warm Line @ [phone]. Related to Anxiety and depression Pursue enjoyable act ivities and social relationships. Related to Anxiety and depression Eat a healthy diet a nd get daily low-level exercise. Related to Anxiety and depression Recommend a digital blood pressure monitor for upper arm. Do not use a wrist monitor - not accurate. Bring blood pressure monitor to office visits so the accuracy of your monitor is evaluated. Take your blood pressure 1-2 hours AFTER taking your blood pressure medication. Do not take your blood pressure before taking blood pressure meds. Keep a log of BP readings. Call if any questions or if BP high or low. Bring log to office visits. Remember, blood pressure varies. Related to Essential hypertension A teachback techniqu e was utilized for patient education Related to Morbid obesity Recommend a digital blood pressure monitor for upper arm. Do not use a wrist monitor - not accurate. Bring blood pressure monitor to office visits so the accuracy of your monitor is evaluated. Take your blood pressure 1-2 hours AFTER taking your blood pressure medication. Do not take your blood pressure before taking blood pressure meds. Keep a log of BP readings. Call if any questions or if BP high or low. Bring log to office visits. Remember, blood pressure varies. Related to Morbid obesity A teachback techniqu e was utilized for patient education Related to Morbid obesity Increase exercise Related to Mor bid obesity Portion control Related to Morbi d obesity Recommend a digital blood pressure monitor for upper arm. Do not use a wrist monitor - not accurate. Bring blood pressure monitor to office visits so the accuracy of your monitor is evaluated. Take your blood pressure 1-2 hours AFTER taking your blood pressure medication. Do not take your blood pressure before taking blood pressure meds. Keep a log of BP readings. Call if any questions or if BP high or low. Bring log to office visits. Remember, blood pressure varies. Related to Elevated BP without diagnosis of hypertension A teachback techniqu e was utilized for patient education Related to Morbid obesity d/c WELLBUTRI XL 150 MG 1 Q AM , continue zoloft 100 mg 1 q am.) rx for 30 days, 1 refills. f/u in 6 weeks or sooner if needed. Related to Anxiety and depression Teach Back Related to Anxie ty and depression Take medications as prescribed. Related to Anxiety and depression For psychiatric errol gency, call the Crisis Line @ [phone] or [phone]. Related to Anxiety and depression For someone to talk to call the Warm Line @ [phone]. Related to Anxiety and depression Pursue enjoyable act ivities and social relationships. Related to Anxiety and depression Eat a healthy diet a nd get daily low-level exercise. Related to Anxiety and depression Recommend a digital blood pressure monitor for upper arm. Do not use a wrist monitor - not accurate. Bring blood pressure monitor to office visits so the accuracy of your monitor is evaluated. Take your blood pressure 1-2 hours AFTER taking your blood pressure medication. Do not take your blood pressure before taking blood pressure meds. Keep a log of BP readings. Call if any questions or if BP high or low. Bring log to office visits. Remember, blood pressure varies. Related to Elevated BP without diagnosis of hypertension A teachback techniqu e was utilized for patient education Related to Morbid obesity continue WELLBUTRI X L 150 MG 1 Q AM , continue zoloft 100 mg 1 q am. rx for 30 days, no refills. f/u in 4 weeks or sooner if needed. Related to Anxiety and depression Teach Back Related to Anxie ty and depression Take medications as prescribed. Related to Anxiety and depression For psychiatric errol gency, call the Crisis Line @ [phone] or [phone]. Related to Anxiety and depression For someone to talk to call the Warm Line @ [phone]. Related to Anxiety and depression Pursue enjoyable act ivities and social relationships. Related to Anxiety and depression Eat a healthy diet a nd get daily low-level exercise. Related to Anxiety and depression A teachback technSinDelantal.Mx e was utilized for patient education Related to Morbid obesity START WELLBUTRI XL 1 50 MG 1 Q AM , continue zoloft 100 mg 1 q am. (pt will try to reduce dose to 50 mg/day if sexul dysfunction persists despite adding the wellbutrin. ) rx for 30 days, no refills. f/u in 3 weeks or sooner if needed. Related to Anxiety and depression For someone to talk to call the Warm Line @ [phone]. Related to Anxiety and depression Teach Back Related to Anxie ty and depression Take medications as prescribed. Related to Anxiety and depression For psychiatric errol gency, call the Crisis Line @ [phone] or [phone]. Related to Anxiety and depression Pursue enjoyable act ivities and social relationships. Related to Anxiety and depression Eat a healthy diet a nd get daily low-level exercise. Related to Anxiety and depression Has Urology appointm ent pending.He will be calling Endo to book appointment. Related to Low testosterone in male Following with Neurology Related to Paresthesia Consider sleep study Related to Morbid obesity increase zoloft to 1 00 mg 1 q am. rx for 30 days, no refills. f/u in 3 weeks or sooner if needed. Related to Anxiety and depression increase zoloft to 1 00 mg 1 q am. rx for 30 days, no refills. f/u in 3 weeks or sooner if needed. Related to Anxiety and depression Teach Back Related to Anxie ty and depression Take medications as prescribed. Related to Anxiety and depression For psychiatric errol gency, call the Crisis Line @ [phone] or [phone]. Related to Anxiety and depression For someone to talk to call the Warm Line @ [phone]. Related to Anxiety and depression Pursue enjoyable act ivities and social relationships. Related to Anxiety and depression Eat a healthy diet a nd get daily low-level exercise. Related to Anxiety and depression Teach Back technique has been utilized for patient education Related to Anxiety and depression Take medications as prescribed. Related to Anxiety and depression For psychiatric errol gency, call the Crisis Line @ [phone] or [phone]. Related to Anxiety and depression Consider sleep study Related to Morbid obesity Neurology referral pending Relat ed to Paresthesia MRI and Endo Referra l pending. The patient provided verbal informed consent for the use of telehealth visit. Pt was informed that all usual policies, procedures, and payments applied, and details of the visit would be documented in their medical record. Patient expressed understanding and discussion was conducted in their preferred language. Related to Secondary male hypogonadism Continue with Sertraline 50mg. R elated to Anxiety and depression Recommend a digital blood pressure monitor for upper arm. Do not use a wrist monitor - not accurate. Bring blood pressure monitor to office visits so the accuracy of your monitor is evaluated. Take your blood pressure 1-2 hours AFTER taking your blood pressure medication. Do not take your blood pressure before taking blood pressure meds. Keep a log of BP readings. Call if any questions or if BP high or low. Bring log to office visits. Remember, blood pressure varies. Related to Elevated BP without diagnosis of hypertension Teach Back technique has been utilized for patient education Related to Anxiety and depression Take medications as prescribed. Related to Anxiety and depression For psychiatric errol shon, call the Crisis Line @ [phone] or 594. Related to Anxiety and depression [facility] provided this pa tient with psychoeducation associated with his situation and tools to use to cope. [facility] normalized his thoughts and feelings, he was receptive. [facility] provided this patient with support in the form of active listening and motivational interventions, [facility] validated his hard work and perseverance and he was thankful. This patient states that he will use the tools that he received in this session and will speak with the [facility] as needed. Related to Psychosocial stressors Recommend a digital blood pressure monitor for upper arm. Do not use a wrist monitor - not accurate. Bring blood pressure monitor to office visits so the accuracy of your monitor is evaluated. Take your blood pressure 1-2 hours AFTER taking your blood pressure medication. Do not take your blood pressure before taking blood pressure meds. Keep a log of BP readings. Call if any questions or if BP high or low. Bring log to office visits. Remember, blood pressure varies. Related to Elevated BP without diagnosis of hypertension Teachback technique utilized Rel ated to Physical exam A teachback techniqu e was utilized for patient education Related to Psychosocial stressors Normalizing Related to Psych osocial stressors Support Validation Related to Ps ychosocial stressors Vistaril RX for davina raevnhrough anxiety. Declines Psychiatric eval to rule out Bipolar. Related to Anxiety and depression [facility] provided this pa tient with psychoeducation associated with his situation and tools to use to cope. [facility] used thought redirection techniques with this patient to practice alternative thinking options, he was receptive. [facility] discussed stress management with this patient by encouraging self care, relaxation techniques as well as scheduling activities in his day for better balance. He was thankful. This patient states that he will use the tools that he received in this session and will speak with the [facility] as needed. Related to Psychosocial stressors A teachback techniqu e was utilized for patient education Related to Psychosocial stressors Thought re-direction/CBT Related to Psychosocial stressors Stress Management Related to Psy chosocial stressors [facility] discussed the [facility] model and the [facility] role. [facility] provided this patient with psychoeducation associated with his situation and tools to use to cope. [facility] problem solved with this patient by looking at options and sorting through his issues, he was receptive. [facility] provided this patient provided this patient support in the form of active listening and motivational interventions, [facility] validated this patient by recognizing his strengths and perseverance and he was thankful. This patient states that he will use the tools that he received and will speak with the [facility] as needed. Related to Psychosocial stressors A teachback techn[employer] e was utilized for patient education Related to Psychosocial stressors Problem Solving Related to Psych osocial stressors Support Validation Related to Ps ychosocial stressors Had dizziness with B P med previously.Will have him come in for BP check at physical. Related to Essential hypertension Vistaril RX for davina harris anxiety. Starting you on sertraline today, It is important for you to take it daily and not miss doses. Start at dinner to see if it makes you tired or keeps you awake to determine if need to take in the morning or at night, side effects reviewed. Report any thoughts of harming yourself right away. You will be seen by our clinical licensed master social worker today and will be given a crisis hotline numberYou may start to feel more energized in next two weeks but won't likely start feeling less depressed for 4-6 weeks. It will also take that long for you to begin to feel the benefit of the medicationF/u with me in 2 weeks to monitor mood and safety Related to Anxiety and depression Assessments Type Assessment Date No Information Patient Care Teams Name Effective Dates (start - stop) Status Members No Information
--- OUTSIDE RECORDS SUMMARY | 2025-05-13 09:18 | XMS_ITS | Continuity of Care Document ---
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 someone to talk to call the Warm Line @ [phone]. Related to Anxiety and depression For psychiatric errol gency, call the Crisis Line @ [phone] or [phone]. Related to Anxiety and depression Take medications as prescribed. Related to Anxiety and depression Teach Back Related to Anxie ty and depression Recommend a digital blood pressure [...] if needed. Related to Anxiety and depression Eat a healthy diet a nd get daily low-level exercise. Related to Anxiety and depression Pursue enjoyable act ivities and social relationships. Related to Anxiety and depression For someone to talk to call the Warm Line @ [phone]. Related to Anxiety and depression For psychiatric errol gency, call the Crisis Line @ [phone] or [phone]. Related to Anxiety and depression Take medications as prescribed. Related to Anxiety and depression Teach Back Related to Anxie ty and depression A teachback techn[employer] e was utilized for patient education Related [...] if needed. Related to Anxiety and depression Eat a healthy diet a nd get daily low-level exercise. Related to Anxiety and depression Pursue enjoyable act ivities and social relationships. Related to Anxiety and depression For psychiatric errol gency, call the Crisis Line @ [phone] or [phone]. Related to Anxiety and depression Take medications as prescribed. Related to Anxiety and depression Teach Back Related to Anxie ty and depression For someone to talk to call the Warm Line @ [phone]. Related to Anxiety and depression Has Urology appointm ent pending.He will be calling Endo to book appointment. Related to Low testosterone in male Consider sleep study Related to Morbid obesity Following with Neurology Related to Paresthesia increase zoloft to 1 00 mg 1 [...] talk to call the Warm Line @ [phone]. Related to Anxiety and depression For psychiatric errol gency, call the Crisis Line @ [phone] or [phone]. Related to Anxiety and depression Take medications as prescribed. Related to Anxiety and depression Teach Back Related to Anxie ty and depression Eat a healthy diet a nd get daily low-level exercise. Related to Anxiety and depression Pursue enjoyable act ivities and social relationships. Related to Anxiety and depression For psychiatric errol gency, call the Crisis Line @ [phone] or [phone]. Related to Anxiety and depression Take medications as prescribed. Related to Anxiety and depression Teach Back technique has been utilized for patient education Related to Anxiety and depression Consider sleep [...] to Elevated BP without diagnosis of hypertension Take medications as prescribed. Related to Anxiety and depression Teach Back technique has been utilized for patient education Related to Anxiety and depression For psychiatric errol shon, call the Crisis Line @ [phone] or [phone]. Related to Anxiety and depression [facility] provided this pa tient with psychoeducation associated with his situation and tools to use to cope. [facility] normalized his thoughts and feelings, he was receptive. [facility] provided this patient with support in the form of active listening and motivational interventions, [facility] validated his hard work and perseverance and he was thankful. This patient states that he will use the tools that he received in this session and will speak with the [facility] as needed. Related to Psychosocial stressors Recommend [...] Support Validation Related to Ps ychosocial stressors Teachback technique utilized Rel ated to Physical exam Vistaril RX for davina raevnhrough anxiety. Declines Psychiatric eval to rule out Bipolar. Related to Anxiety and depression [facility] provided this pa tient with psychoeducation associated with his situation and tools to use to cope. [facility] used thought redirection techniques with this patient to practice alternative thinking options, he was receptive. [facility] discussed stress management with this patient by encouraging self care, relaxation techniques as well as scheduling activities in his day for better balance. He was thankful. This patient states that he will use the tools that he received in this session and will speak with the [facility] as needed. Related to Psychosocial stressors Stress Management Related to Psy chosocial stressors Thought re-direction/CBT Related to Psychosocial stressors A teachback techniqu e was utilized for patient education Related to Psychosocial stressors [facility] discussed the [facility] model and the [facility] role. [facility] provided this patient with psychoeducation associated with his situation and tools to use to cope. [facility] problem solved with this patient by looking at options and sorting through his issues, he was receptive. [facility] provided this patient provided this patient support in the form of active listening and motivational interventions, [facility] validated this patient by recognizing his strengths and perseverance and he was thankful. This patient states that he will use the tools that he received and will speak with the [facility] as needed. Related to Psychosocial stressors Support Validation Related to Ps ychosocial stressors Problem Solving Related to Psych osocial stressors A teachback techniqu e was utilized for patient education Related to Psychosocial stressors Had dizziness with B P med [...] You will be seen by our clinical high school social studies teacher today and will be given a crisis [...]
[2025-05-16] VITALS (13 sets, daily range): BP systolic 141–157; BP diastolic 91–98; PULSE 85–100; RESP 20; TEMP 36.4–37; O2SAT 95–100; BMI 42.0; BMI 43.1
--- OUTSIDE RECORDS SUMMARY | 2025-05-16 18:04 | XMS_ITS | Patient Health Record ---
Author Organization [facility] Address [address] [place] [address] Care Team Providers Care Spud Driller Name Role Phone Wang Hair MD Primary Care Provider Rogerio Wing Unavailable [phone] Allergies No Known Allergies Reason For Referral No Information Medications Medication SIG (Take, Route, Frequency, Duration) Notes Start Date End Date Status Ondansetron 4 MG Tablet Disintegrating 1 tablet on the tongue and allow to dissolve for nausea/vomitting Every 4 hours; Duration: 2 Days 01/02/2023 Active Social History Social History Tobacco Use: Social Info Question Answer Notes Smoking: Are you an other tobacco user? never smok er Additional Details Category Social Info Options Details Alcohol intake Alcohol Intake Occasional Plan Of Treatment Pending Test Test Name Order Date CHEST 2 VIEW 01/02/2023 Insurance Providers Payer Name Payer Address Payer Phone Subscriber Number Group Number Insured Name Patient Relationship to Insured Coverage Start Date Coverage End Date [facility] [address] [address] [place] [phone] [id number] Segun Jacob Self - patient is the insured [facility] Community Plan [address] [place] [address] [id number] Segun Jacob Self - patient is the insured Medical (General) History Medical History History ICD Code none
--- OUTSIDE RECORDS SUMMARY | 2025-05-16 18:04 | XMS_ITS | Clinical Summary ---
Author Organization [facility] Address [address] [place] [id number] Care Team Providers Care [employer] Senior [employer] Name Role Phone Outside, Provider Primary Care Provider Unavaila ble Allergies No known active allergies Medications ondansetron (ZOFRAN ODT) 4 MG ODT tab Take 1 tablet (4 mg) by mouth every 8 hours as needed for nausea or vomiting 15 tablet 01/15/2023 Active Active Problems Problem Noted Date Diagnosed Date Chronic back pain 01/15/2023 01/15/2023 Headache disorder 01/15/2023 01/15/2023 Essential (primary) hypertension 01/15/2023 01/15/2023 Intermittent explosive disorder 01/15/2023 01/15/2023 Major depressive disorder, single episode, unspe cified 01/15/2023 01/15/2023 Mixed anxiety depressive disorder 01/15/2023 01/15/2023 Morbid (severe) obesity due to excess calories 0 10/08/2019 01/15/2023 Prediabetes 04/15/2019 01/15/2023 Social History Tobacco Use Types Packs/Day Years Used Date Smoking Tobacco: Never Assessed Adolescent Education Answer Date Record ed Getting School Help Needed Not on file 04/20 Sex and Gender Information Value Date Recorded Sex Assigned at Not on file Legal Sex Male 3:34 AM CDT Gender Identity Not on file Sexual Orientation Not on file Last Filed Vital Signs Vital Sign Reading Time Taken Comments Blood Pressure 161/106 01/15/2023 5:11 AM CDT Pulse 67 01/15/2023 5:11 AM CDT Temperature 36.3 C (97.3 F) 01/15/2023 3:37 AM CDT Respiratory Rate 22 01/15/2023 5:11 AM CDT Oxygen Saturation 98% 01/15/2023 5:11 AM CDT Inhaled Oxygen Concentration - - Weight - - Height - - Body Mass Index - - Plan of Treatment Health Maintenance Due Date Last Done Comments ADVANCE CARE PLANNING 1983 ANNUAL REVIEW OF HM ORDERS 1983 DEPRESSION ACTION PLAN 1983 PHQ-9 1983 HIV SCREENING 10/20/1998 HEPATITIS C SCREENING 10/20/2001 HEPATITIS B VACCINE (1 of 3 - 19+ 3-dose series) 10/20/2002 DTAP/TDAP/TD VACCINE (1 - Tdap) 10/20/2008 YEARLY PREVENTIVE VISIT 06/30/2021 06/30/2020 LIPID 2023 BMP 01/16/2024 01/15/2023 COVID-19 VACCINE (1 - 2024-2 6 season) 2025 INFLUENZA VACCINE (#1) 2025 9, 07/09/2017, 06/28/2016 DIABETES SCREENING 01/15/2026 01/15/2023 ZOSTER VACCINE (1 of 2) 10/20/2033 HPV VACCINE (No Doses Required) Completed MENINGITIS VACCINE Aged Out No longer eligible based on patient's age to complete this topic PNEUMOCOCCAL VACCINE: PEDIATRICS (0 to 5 YEARS) AND AT-RISK PATIENTS (6 to 49 YEARS) Aged Out No longer eligible b ased on patient's age to complete this topic Procedures Procedure Name Priority Date/Time Associated Diagnosis Comments COMPREHENSIVE METABOLIC PANEL STAT 01/15/2023 4:01 AM CDT from Last 3 Months or Most Recently Relevant to Health Maintenance Results * (ABNORMAL) Comprehensive metabolic panel (01/15/2023 4:01 AM CDT) Sodium 139 136 - 145 mmol/L 01/15/2023 4:35 AM CDT [facility] Potassium 4.2 3.4 - 5.3 mmol/L 01/15/2023 4:35 AM [facility]T [facility] Comment:Specimen slightly he molyzed, potassium may be falsely elevated. Chloride 102 98 - 107 mmol/L 01/15/2023 4:35 AM CDT [facility] Carbon Dioxide (CO2) 25 22 - 29 mmol/L 01/15/2023 4:35 AM CDT [facility] Anion Gap 12 7 - 15 mmol/L 01/15/2023 4:35 AM CDT [facility] Urea Nitrogen 11.7 6.0 - 20.0 mg/dL 01/15/2023 4:35 AM CDT [facility] Creatinine 0.97 0.67 - 1.17 mg/dL 01/15/2023 4:35 AM CDT [facility] Calcium 9.3 8.6 - 10.0 mg/dL 01/15/2023 4:35 AM CDT [facility] Glucose 127(H) 70 - 99 mg/dL 01/15/2023 4:35 AM CDT [facility] Alkaline Phosphatase 65 40 - 129 U/L 01/15/2023 4:35 AM CDT [facility] AST 29 0 - 45 U/L 01/15/2023 4:35 AM CDT [facility] Comment:Reference intervals for this test were updated on 01/07/2023 to more accurately reflect our healthy population. There may be differences in the flagging of prior results with similar values performed with this method. Interpretation of those prior results can be made in the context of the updated reference intervals. ALT 31 0 - 70 U/L 01/15/2023 4:35 AM CDT [facility] Comment:Reference intervals for this test were updated on 01/07/2023 to more accurately reflect our healthy population. There may be differences in the flagging of prior results with similar values performed with this method. Interpretation of those prior results can be made in the context of the updated reference intervals. Protein Total 7.1 6.4 - 8.3 g/dL 01/15/2023 4:35 AM CDT [facility] Albumin 4.3 3.5 - 5.2 g/dL 01/15/2023 4:35 AM CDT [facility] Bilirubin Total 0.3 <=1.2 mg/dL 01/15/2023 4:35 AM CDT [facility] GFR Estimate >90 >60 mL/min/1. 73m2 01/15/2023 4:35 AM CDT [facility] Comment:eGFR calculated us2020 CKD-EPI equation. Blood BLOOD SPECIMEN / Unknown Venipuncture / Unknown 01/15/2023 4:01 AM CDT 01/15/2023 4:08 AM CDT us Gideon Valiente MD LAB - BLOOD ORDERABLES Final R esult [facility] [address] [facility] (1st floor, no room number) [place] [address], [place] [phone] from Last 3 Months or Most Recently Relevant to Health Maintenance Insurance [place] [employer] [facility] [employer] PMAP OOS Care Teams [employer] Senior [employer] Relationship Specialty Start Date End Date Outside, Provider PCP - General 01/15/23
--- NOTE | 2025-05-16 19:40 | CRLHL7_ITS ---
For Patients: As a result of the Century Cures Act, medical imaging exams and procedure reports are released immediately into your electronic medical record. You may view this report before your referring provider. If you have questions, please contact your health care provider. INDICATION: Diffuse abdominal pain worse in the epigastric region. TECHNIQUE: Axial intravenously infused CT cuts were performed from above the diaphragm to the below the ischial tuberosities with infusion of 140 mL of Isovue-370. COMPARISON: None. FINDINGS: There is a 2.0 cm calcified gallstone within the gallbladder neck. There is no biliary dilation. The liver, spleen pancreas, adrenals and kidneys appear normal. There are no enlarged retroperitoneal or mesenteric lymph nodes. The colon and small bowel appear normal. The appendix is not inflamed. The urinary bladder, seminal vesicles and prostate gland appear normal. There is no iliac or inguinal lymphadenopathy. There are no nodules or masses at the lung bases. There has been surgery at the L2-3 level with metallic hardware in place. IMPRESSION : Cholelithiasis with a 2.0 cm calcified gallstone in the gallbladder neck. Please note that all CT scans at this facility use dose modulation, iterative reconstruction, and/or weight-based dosing when appropriate to reduce radiation dose to as low as reasonably achievable. Dictated by Sean Wilson MD @ 05/16/2025 8:41:06 PM (Electronically Signed)
--- NOTE | 2025-05-16 19:55 | ED.ABDPAIN ---
HPI - Abdominal Pain General Date Seen: 05/16/25 Chief Complaint: Abdominal Pain Stated Complaint: gull bladder attack Time Seen by Provider: 05/16/25 19:33 Source: patient Mode of arrival: ambulatory Limitations: no limitations History of Present Illness HPI narrative: Patient is a 39-year-old male with history of cholelithiasis but no previous abdominal surgeries presenting to the emergency department for abdominal pain. He states around 13:00 or 14:00 started developing abdominal pain and has been gradually getting worse. Most the pain is in his epigastric region but he does feels like it radiates throughout most of his abdomen. States he had similar pain like this before with his cholelithiasis but was not this bad. Feels like he is getting more bloated. Has had 3 stools then pain began and they are all liquidy he states. Denies any recent antibiotic use. Has not had any fevers but has been having chills since the pain started. Had 1 episode of near-syncope. Tried Pepto-Bismol without any relief. States the pain began after eating a chorizo burrito. Denies chest pain, shortness of breath, headache, dizziness, vision changes, weakness, numbness, dysuria, hematuria, testicular pain. Describes the pain as a pressure-like sensation that continues to get worse. Does currently still feeling nauseated. Has not been able to vomit despite trying to. Related Data Home Medications ?Medication ?Instructions ?Recorded ?Confirmed gabapentin 800 mg tablet 800 - 1,600 mg PO QHS PRN 10/09/24 02/16/25 methocarbamol 750 mg tablet 750 - 1,500 mg PO QHS PRN 10/09/24 02/16/25 pantoprazole 40 mg tablet,delayed 40 mg PO QDAY 10/09/24 02/16/25 release Previous Rx's ?Medication ?Instructions ?Recorded testosterone cypionate 200 mg/mL 200 mg IM Q7D #20 mL 11/25/24 intramuscular oil (Depo-Testosterone) phentermine 37.5 mg capsule 37.5 mg PO QDAY #30 caps 05/03/25 Allergies Allergy/AdvReac Type Severity Reaction Status Date / Time No Known Drug Allergies Allergy Verified 05/16/25 21:08 Review of Systems Status of ROS Reports: 10 or more systems reviewed and unremarkable except as noted in History and below PFSH PFS Surgical History Status post lumbar spinal fusion ?Z98.1 - Arthrodesis status (ICD-10) Status post vasectomy ?Z98.52 - Vasectomy status (ICD-10) Social History Narrative: [employer] Former smoker, quit in 2016 What is your current living situation?: I presently have a place to live Problems where you live: no known problems In the past 12 months, utilities in danger of being shut off: no In past 12 months, lack of transportation kept you from medical appts, meetings, work, or getting things needed for daily living: no In the past 12 mos, have been you worried that your food would run out before you had money to buy more?: never true In the past 12 mos, the food you bought just didn't last and you didn't have money to buy more?: never true Smoking Status: Never smoker Do you use any of these nicotine containing products: None Second hand tobacco smoke exposure: No How often do you have a drink containing alcohol: 2-4 times a month How many standard drinks containing alcohol do you have on a typical day: 1 or 2 How often do you have six or more drinks on one occasion: Never AUDIT-C Alcohol total score: 2 Non-prescribed substance use: denies use Caffeine: No How often does anyone, including family, friends and others, physically hurt you: never How often does anyone, including family, friends and others, insult or talk down to you: never How often does anyone, including family, friends and others, threaten you with harm: never How often does anyone, including family, friends and others, scream or curse at you: never service: No Exam Narrative: Exam Narrative: Const: Well-nourished, Well-developed, in moderate distress Eyes: PERRL, no conjunctival injection, and symmetrical lids HENT: Atraumatic external nose and ears. Moist mucous membranes. Neck: Symmetric, trachea midline, No thyromegaly. CVS: RRR, No murmurs or gallops. Peripheral pulses 2+ and equal in all extremities RESP: Unlabored respiratory effort. Clear to auscultation bilaterally. GI: Diffuse abdominal pain everywhere other than left lower quadrant. Nondistended, No rebound or guarding. MSK:Extremities w/o deformity, Normal Active ROM Skin: Warm, Dry. No rashes or lesions. Neuro: Normal Muscle tone, No focal neurological deficits. Psych: Awake, Alert, & Oriented x3. Appropriate mood and affect. Const: Vital Signs, click to edit/add: Vital Signs - 24 hr 05/16/25 18:07 Temperature 97.5 F L Pulse Rate [Pulse Oximeter] 97 Respiratory Rate 20 Blood Pressure [Ri ght Upper Arm] 157/98 H Pulse Oximetry 95 Oxygen Delivery Me thod Room Air Course Vital Signs Vital signs: Initial Vital Signs Temperature 97.5 F L 05/16/25 18:07 Temperature Source Temporal Artery Scan 05/16/25 18:07 Pulse Rate 97 05/16/25 18:07 Respiratory Rate 20 05/16/25 18:07 Blood Pressure 157/98 H 05/16/25 18:07 Blood Pressure Mean 117 H 05/16/25 18:07 Blood Pressure Position Sitting 05/16/25 18:07 Pulse Oximetry 95 05/16/25 18:07 Oxygen Delivery Method Room Air 05/16/25 18:07 Vital Signs Temperature 97.5 F L 05/16/25 18:07 Pulse Rate 97 05/16/25 18:07 Respiratory Rate 20 05/16/25 18:07 Blood Pressure 157/98 H 05/16/25 18:07 Pulse Oximetry 95 05/16/25 18:07 Oxygen Delivery Method Room Air 05/16/25 18:07 Temperature 97.5 F L 05/16/25 18:07 Pulse Rate 97 05/16/25 18:07 Respiratory Rate 20 05/16/25 18:07 Blood Pressure 157/98 H 05/16/25 18:07 Pulse Oximetry 95 05/16/25 18:07 Oxygen Delivery Method Room Air 05/16/25 18:07 Medications Administered Medications: Discontinued Medications Generic Name Dose Route Start Last Admin Trade Name Freq PRN Reason Stop Dose Admin Lactated Ringer's 1,000 mls @ 1,000 mls/hr 05/16/25 21:30 05/16/25 21:45 Lactated Ringers 1000 Ml IV 05/16/25 22:29 1,000 mls/hr .Q1H ONE Administration Morphine Sulfate 4 mg 05/16/25 19:40 05/16/25 20:00 Morphine 4 Mg/Ml Inj IVP 05/16/25 19:41 4 mg ONCE ONE Administration Morphine Sulfate 4 mg 05/16/25 21:30 05/16/25 21:45 Morphine 4 Mg/Ml Inj IVP 05/16/25 21:31 4 mg ONCE ONE Administration Ondansetron HCl 4 mg 05/16/25 19:40 05/16/25 20:00 Ondansetron 2 Mg/Ml Inj IVP 05/16/25 19:41 4 mg ONCE ONE Administration MDM - Abdominal Pain MDM Narrative Medical decision making narrative: Patient is a 39-year-old male presenting for diffuse abdominal pain. Differential is large including gallbladder/liver disease, pancreatitis, gastroenteritis, appendicitis. At the left lower quadrant is the only spot he is not having pain diverticulitis seems less likely. There is less concern for an SBO as he has no previous abdominal surgeries. With no recent antibiotic use this seems less likely to be C diff. With the pressure sensation I will do EKG and troponin to look for cardiac abnormalities. Will order CBC, CMP, Na arms was, lipase, urinalysis, CT scan abdomen pelvis. Morphine given for pain and Zofran given for nausea. Patient has red blood cell count is slightly elevated at 12.24. Rest of his lab work shows no acute concerning abnormalities. Troponin within normal limits. EKG reviewed myself shows no acute concerning as she is. CT scan reviewed by myself and the radiologist show a large gallstone in neck of the gallbladder. I did speak to General surgery, Dr. Culp, recommends an ultrasound. Ultrasound was ordered and shows signs of cholecystitis. Due to this he will be admitted and started on Zosyn. Dr. Veloz accepted him for admission patient is agreeable to this plan. Lab Data Labs: Lab Results 05/16/25 Range/Units 15:12 WBC 12.24 H (4.50-11.00) K/uL RBC 6.38 H (4.30-5.90) m/uL Hgb 15.2 (13.5-17.5) gm/dL Hct 47.5 (37.0-53.0) % MCV 75 L (80-100) fL MCH 24 L (26-34) pg MCHC 32 (32-36) gm/dL RDW Coeff of Liz 17.3 H (11.5-15.5) % Plt Count 331 (140-440) K/uL Neut % (Auto) 85.2 H (42.0-72.0) % Lymph % (Auto) 5.1 L (20-44) % Laporte % (Auto) 6.5 (0.0-11.0) % Eos % (Auto) 2.0 (0.0-7.0) % Baso % (Auto) 0.2 (0.0-3.0) % Neut # (Auto) 10.40 H (1.7-7.0) K/uL Lymph # (Auto) 0.60 L (0.90-2.90) K/uL Laporte # (Auto) 0.80 (0.00-0.90) K/UL Eos # (Auto) 0.20 (0.00-0.50) K/uL Baso # (Auto) 0.00 (0.00-0.30) K/uL Abs Immat Gran (auto) 0.10 (0.00-0.30) K/uL Imm/Tot Granulo (auto) 1.0 % Sodium 134 L (135-149) mmol/L Potassium 4.0 (3.6-5.1) mmol/L Chloride 102 (96-114) mmol/L Carbon Dioxide 22 (20-32) mmol/L Anion Gap 10 (7-15) mEq/L BUN 18 (5-24) mg/dL Creatinine 1.0 (0.5-1.5) mg/dL Estimated Creat Clear 106.70 Estimated GFR 97 ml/min Glucose 117 H (60-115) mg/dL Calcium 8.8 (8.4-10.6) mg/dL Total Bilirubin 1.1 (0.1-1.5) mg/dL AST 35 (12-35) U/L ALT 36 (4-50) U/L Alkaline Phosphatase 84 (40-150) U/L Troponin I < 0.01 (0.01-0.04) ng/mL Total Protein 8.2 (6.0-8.3) g/dL Albumin 4.7 (3.3-5.0) g/dL Lipase 71 (23-300) U/L SARS-CoV-2 (PCR) Negative SARS-CoV-2 (Negative) Influenza Type A (PCR) Negative PCR FLU A (Negative) Influenza Type B (PCR) Negative PCR FLU B (Negative) RSV (PCR) Negative PCR RSV (Negative) Imaging Data CT scan abdomen pelvis: Attestation: I have reviewed the pertinent imaging results. Radiologist's impression: Cholelithiasis with a 2.0 cm calcified gallstone in the gallbladder neck. Please note that all CT scans at this facility use dose modulation, iterative reconstruction, and/or weight-based dosing when appropriate to reduce radiation dose to as low as reasonably achievable. Dictated by Sean Wilson MD @ 05/16/2025 8:41:06 PM US - abdomen: Attestation: I have reviewed the pertinent imaging results. Radiologist's impression: Cholelithiasis with mild gallbladder wall thickening and positive sonographic Araujo sign, findings suspicious for acute cholecystitis. Dictated by Toni Wong MD @ 05/16/2025 10:15:12 PM ECG Data Attestation: I personally reviewed and interpreted this ECG as follows: Prior ECG tracings: not available for review Interpretation: Normal sinus rhythm with a rate of 60 beats per minute, normal intervals, normal axis, no ST or T-wave abnormalities. Appears similar previous EKG on file Discharge Plan Discharge Clinical Impression: Acute cholecystitis Patient Disposition: Admitted As Inpatient Condition: Improved
[2025-05-16] MEDS: ONDANSETRON 2 MG/ML inj 4 MG IVP (20:00)
[2025-05-16] MEDS: MORPHINE 4 MG/ML INJ IVP ×2 (20:00→21:45)
[2025-05-16 20:41] LABS: Hematocrit* 47.5 % (37.0-53.0); Hemoglobin* 15.2 gm/dL (13.5-17.5); Immature Granulocytes Pct Auto 1.0 %; Mean Corpuscular HGB Conc 32 gm/dL (32-36); Mean Corpuscular Hemoglobin 24 pg (26-34); Mean Corpuscular Volume 75 fL (80-100); RDW Coefficient of Variation % 17.3 % (11.5-15.5); Red Blood Count* 6.38 m/uL (4.30-5.90); White Blood Count* 12.24 K/uL (4.50-11.00)
[2025-05-16 20:45] LABS: Immature Granulocytes Abs Auto 0.10 K/uL (0.00-0.30); Lymphocytes Absolute Auto 0.60 K/uL (0.90-2.90); Slide Review Reflex No
[2025-05-16 20:53] LABS: Albumin* 4.7 g/dL (3.3-5.0); Chloride* 102 mmol/L (96-114); Potassium* 4.0 mmol/L (3.6-5.1); Sodium* 134 mmol/L (135-149)
[2025-05-16 20:56] LABS: Alanine Aminotransferase* 36 U/L (4-50); Alkaline Phosphatase* 84 U/L (40-150); Anion Gap 10 mEq/L (7-15); Aspartate Amino Transferase* 35 U/L (12-35); Bilirubin Total* 1.1 mg/dL (0.1-1.5); Blood Urea Nitrogen* 18 mg/dL (5-24); Carbon Dioxide* 22 mmol/L (20-32); Creatinine* 1.0 mg/dL (0.5-1.5); Est. Creatinine Clearance* 106.70; Estimated Glomerular Filt Rate 97 ml/min; Total Protein* 8.2 g/dL (6.0-8.3)
[2025-05-16 20:57] LABS: Calcium* 8.8 mg/dL (8.4-10.6); Glucose* 117 mg/dL (60-115)
[2025-05-16 21:03] LABS: PCR FLU A Negative PCR FLU A (Negative); PCR FLU B Negative PCR FLU B (Negative); PCR RSV Negative PCR RSV (Negative); SARS PCR* Negative SARS-CoV-2 (Negative)
--- NOTE | 2025-05-16 21:25 | CRLHL7_ITS ---
For Patients: As a result of the Century Cures Act, medical imaging exams and procedure reports are released immediately into your electronic medical record. You may view this report before your referring provider. If you have questions, please contact your health care provider. INDICATION: Cholelithiasis. TECHNIQUE: Ultrasound abdomen limited. Sonographic images of the right upper quadrant were obtained using haynes-scale and color Doppler images. COMPARISON: None. FINDINGS: Liver: Visualized portions grossly within normal limits. Gallbladder: Prominent nonmobile gallstone measuring 2.7 cm at the gallbladder neck. Mild gallbladder wall thickening, measuring up to 4 mm. No pericholecystic fluid or biliary dilatation. Positive sonographic Araujo`s sign elicited. Common bile duct: 6 mm. IMPRESSION: Cholelithiasis with mild gallbladder wall thickening and positive sonographic Araujo sign, findings suspicious for acute cholecystitis. Dictated by Toni Wong MD @ 05/16/2025 10:15:12 PM (Electronically Signed)
[2025-05-16] MEDS: LACTATED RINGERS 1000 ML 1,000 ML IV (21:45)
[2025-05-16] MEDS: PIPERACILLIN/TAZOBACTAM 3.375 GM in 0.9 % SODIUM CHLORIDE Mini-bag 100 ML IVPB (23:21)
--- NOTE | 2025-05-16 23:39 | P.IMHP_ITS ---
Assessment and Plan Assessment and plan (1) Acute cholecystitis: Problem comment: Admit for IV antibiotics and surgical consult. Status: Acute (2) Obstructive sleep apnea: Problem comment: will bring in home CPAP Status: Acute (3) Chronic back pain: Problem comment: radicular left leg pain. Intermittently uses gabapentin and methocarbamol Status: Acute (4) Obesity: Problem comment: BMI of 42 Status: Acute Plan Patient is admitted for acute cholecystitis. IV antibiotics, IV fluids, surgical consult. Total Time Spent Total Time Spent: Total time spent is 60 minutes in reviewing outside records, coordination of care and discussing with patient and ongoing management of cholecystitis Hospitalist- H&P: HPI History of Present Illness Time Seen by Provider: 23:39 Date Seen: 05/16/25 Chief complaint: gull bladder attack Narrative: Segun Jacob is a 39 year old male with history of cholelithiasis but no previous abdominal surgeries presenting to the emergency department for abdominal pain. He states around 13:00 or 14:00 started developing abdominal pain and has been gradually getting worse. Most the pain is in his epigastric region but he does feels like it radiates throughout most of his abdomen. States he had similar pain like this before with his cholelithiasis but was not this bad. Feels like he is getting more bloated. Has had 3 stools then pain began and they are all liquidy he states. Denies any recent antibiotic use. Has not had any fevers but has been having chills since the pain started. Had 1 episode of near-syncope. Tried Pepto-Bismol without any relief. States the pain began after eating a chorizo burrito. Denies chest pain, shortness of breath, headache, dizziness, vision changes, weakness, numbness, dysuria, hematuria, testicular pain. Describes the pain as a pressure-like sensation that continues to get worse. Does currently still feeling nauseated. Has not been able to vomit despite trying to. In 2022 he reports that he had been diagnosed with what sounds like biliary colic and was referred to a surgeon for cholecystectomy. The process of the referral in arranging surgery took long enough that he decided to give up on it. Since then he has had occasional episodes after eating where he gets right upper quadrant pain. He reports that he punches himself in the right upper quadrant to dislodge his gallstone and then he feels better. He has had previous nasal surgery and lumbar spinal surgery without problems with anesthesia, bleeding or clotting. He has sleep apnea and uses CPAP. 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 Smokes 1 cigar every 2-3 months. Drinks alcohol every other week What is your current living situation?: I presently have a place to live Problems where you live: no known problems In the past 12 months, utilities in danger of being shut off: no In past 12 months, lack of transportation kept you from medical appts, meetings, work, or getting things needed for daily living: no In the past 12 mos, have been you worried that your food would run out before you had money to buy more?: never true In the past 12 mos, the food you bought just didn't last and you didn't have money to buy more?: never true Smoking Status: Never smoker Do you use any of these nicotine containing products: None Second hand tobacco smoke exposure: No How often do you have a drink containing alcohol: 2-4 times a month How many standard drinks containing alcohol do you have on a typical day: 1 or 2 How often do you have six or more drinks on one occasion: Never AUDIT-C Alcohol total score: 2 Non-prescribed substance use: denies use Caffeine: No How often does anyone, including family, friends and others, physically hurt you : never How often does anyone, including family, friends and others, insult or talk down to you: never How often does anyone, including family, friends and others, threaten you with harm: never How often does anyone, including family, friends and others, scream or curse at you: never service: No Meds Home Medications and Allergies Home Medications ?Medication ?Instructions ?Recorded ?Confirmed ?Type gabapentin 800 mg tablet 800 - 1,600 mg PO QHS PRN 02/16/25 History methocarbamol 750 mg tablet 750 - 1,500 mg PO QHS PRN 10/09/24 02/16/25 History pantoprazole 40 mg tablet,delayed 40 mg PO QDAY 02/16/25 History release testosterone cypionate 200 mg/mL 200 mg IM Q7D #20 mL 11/25/24 02/16/25 Rx intramuscular oil (Depo-Testosterone) phentermine 37.5 mg capsule 37.5 mg PO QDAY #30 caps 1 Rx Allergies Allergy/AdvReac Type Severity Reaction Status Date / Time No Known Drug Allergies Allergy Verified 05/16/25 21:08 Exam Narrative: Exam Narrative: He is alert appears in no distress. He gives his own history. Oropharynx with very small airway. Neck is supple without mass or adenopathy. Respirations are clear to auscultation. Breathing is unlabored. Cardiovascular: S1, S2, regular rate and rhythm. Abdomen is soft. He has moderate right upper quadrant tenderness consistent with cholecystitis. I do not palpate a mass. No peritonitis. Extremities with good perfusion, good capillary refill, no edema in his legs. No rash. Const: Vital Signs, click to edit/add: Vital Signs - 24 hr 05/16/25 18:07 Temperature 97.5 F L Pulse Rate [Pulse Oximeter] 97 Respiratory Rate 20 Blood Pressure [Ri ght Upper Arm] 157/98 H Pulse Oximetry 95 Oxygen Delivery Me thod Room Air Documenting provider has reviewed patient's vital signs: yes Hospitalist - H&P: Result Labs Labs: Short CBC 05/16/25 Range/Units 15:12 WBC 12.24 H (4.50-11.00) K/uL Hgb 15.2 (13.5-17.5) gm/dL Hct 47.5 (37.0-53.0) % Plt Count 331 (140-440) K/uL BMP 05/16/25 15:12 Sodium 134 L Potassium 4.0 Chloride 102 Carbon Dioxide 22 BUN 18 Creatinine 1.0 Glucose 117 H Calcium 8.8 Cardiac Enzymes 05/16/25 Range/Units 15:12 Troponin I < 0.01 (0.01-0.04) ng/mL Liver Function 05/16/25 Range/Units 15:12 Total Bilirubin 1.1 (0.1-1.5) mg/dL AST 35 (12-35) U/L ALT 36 (4-50) U/L Alkaline Phosphatase 84 (40-150) U/L Albumin 4.7 (3.3-5.0) g/dL Imaging CT scan - abdomen: Radiologist's impression: INDICATION: Diffuse abdominal pain worse in the epigastric region. TECHNIQUE: Axial intravenously infused CT cuts were performed from above the diaphragm to the below the ischial tuberosities with infusion of 140 mL of Isovue-[id number]. COMPARISON: None. FINDINGS: There is a 2.0 cm calcified gallstone within the gallbladder neck. There is no biliary dilation. The liver, spleen pancreas, adrenals and kidneys appear normal. There are no enlarged retroperitoneal or mesenteric lymph nodes. The colon and small bowel appear normal. The appendix is not inflamed. The urinary bladder, seminal vesicles and prostate gland appear normal. There is no iliac or inguinal lymphadenopathy. There are no nodules or masses at the lung bases. There has been surgery at the L2-3 level with metallic hardware in place. IMPRESSION : Cholelithiasis with a 2.0 cm calcified gallstone in the gallbladder neck. US - abdomen: Radiologist's impression: INDICATION: Cholelithiasis. TECHNIQUE: Ultrasound abdomen limited. Sonographic images of the right upper quadrant were obtained using haynes-scale and color Doppler images. COMPARISON: None. FINDINGS: Liver: Visualized portions grossly within normal limits. Gallbladder: Prominent nonmobile gallstone measuring 2.7 cm at the gallbladder neck. Mild gallbladder wall thickening, measuring up to 4 mm. No pericholecystic fluid or biliary dilatation. Positive sonographic Araujo`s sign elicited. Common bile duct: 6 mm. IMPRESSION: Cholelithiasis with mild gallbladder wall thickening and positive sonographic Araujo sign, findings suspicious for acute cholecystitis.
[2025-05-17] VITALS (22 sets, daily range): BP systolic 129–164; BP diastolic 75–99; PULSE 74–97; RESP 12–24; TEMP 36.2–37.7; O2SAT 90–100
[2025-05-17] MEDS: LACTATED RINGERS 1000 ML 1,000 ML 500 ML IV (00:20)
[2025-05-17] MEDS: LACTATED RINGERS 1000 ML 1,000 ML 150 ML IV ×2 (00:21→15:46)
[2025-05-17] MEDS: SODIUM CHLORIDE 0.9 % (FLUSH) 10 ML SYRINGE 5 ML IVF ×3 (03:00→09:24)
[2025-05-17] MEDS: PIPERACILLIN/TAZOBACTAM 3.375 GM in 0.9 % SODIUM CHLORIDE Mini-bag 100 ML IVPB ×2 (05:25→11:01)
[2025-05-17 06:53] LABS: Hematocrit* 42.5 % (37.0-53.0); Hemoglobin* 13.3 gm/dL (13.5-17.5); Immature Granulocytes Abs Auto 0.01 K/uL (0.00-0.30); Immature Granulocytes Pct Auto 0.1 %; Mean Corpuscular HGB Conc 31 gm/dL (32-36); Mean Corpuscular Hemoglobin 24 pg (26-34); Mean Corpuscular Volume 75 fL (80-100); RDW Coefficient of Variation % 16.9 % (11.5-15.5); Red Blood Count* 5.66 m/uL (4.30-5.90); White Blood Count* 6.90 K/uL (4.50-11.00)
[2025-05-17 07:01] LABS: Lymphocytes Absolute Auto 0.70 K/uL (0.90-2.90); Slide Review Reflex No
[2025-05-17 07:10] LABS: Albumin* 3.9 g/dL (3.3-5.0); Chloride* 100 mmol/L (96-114); Potassium* 4.0 mmol/L (3.6-5.1); Sodium* 133 mmol/L (135-149)
[2025-05-17 07:13] LABS: Alanine Aminotransferase* 27 U/L (4-50); Alkaline Phosphatase* 60 U/L (40-150); Anion Gap 4 mEq/L (7-15); Aspartate Amino Transferase* 25 U/L (12-35); Bilirubin Direct* 0.2 mg/dL (0.0-0.5); Bilirubin Total* 1.1 mg/dL (0.1-1.5); Blood Urea Nitrogen* 16 mg/dL (5-24); Calcium* 8.1 mg/dL (8.4-10.6); Carbon Dioxide* 29 mmol/L (20-32); Creatinine* 1.0 mg/dL (0.5-1.5); Est. Creatinine Clearance* 106.70; Estimated Glomerular Filt Rate 97 ml/min; Glucose* 117 mg/dL (60-115); Total Protein* 6.6 g/dL (6.0-8.3)
--- NOTE | 2025-05-17 07:56 | PC.NURSE ---
Pt alert and oriented x3. Afebrile. Pt rates pain 4-6/10 in abdomen, pain managed with PRN medication. Pt is up ad basilia, voiding, and tolerating and NPO diet since 0000.
[2025-05-17] MEDS: ACETAMINOPHEN INJ 1,000 MG/100 ML VIAL 400 MG IVPB ×2 (09:20→14:51)
--- NOTE | 2025-05-17 13:55 | PM.GSCN ---
History of Present Illness Consult details Date Seen: 05/17/25 Consult date: 05/17/25 Narrative: The patient is a 39-year-old male who presented to the emergency department yesterday with abdominal pain. He has a known history of gallstones and for the last several years he has had right upper quadrant pain which would come on after eating heavy food. It would go away usually after 30 minutes. He states that it would help if he physically would hit his abdomen in the pain would go away. He eventually went in to be evaluated and was found to have gallstones. He did not really have time to be seen to discuss cholecystectomy so he put this off. He thought at times it could be related to indigestion as well. Yesterday around 2:00 p.m., after eating a burrito, he developed pain that was somewhat different than the right-sided pain he had previously. He states that wrapped across his entire upper abdomen but was worse in the epigastric region. He thought that this was indigestion suite took Pepto-Bismol. He does have a history of reflux and takes an acid blocking medication. He tried to go to sleep a few hours later but was unable. He had nausea but has not had vomiting. He has had diarrhea since yesterday and no blood in his stool. The pain is relieved with pain medication. 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 Smokes 1 cigar every 2-3 months. Drinks alcohol every other week What is your current living situation?: I presently have a place to live Problems where you live: no known problems In the past 12 months, utilities in danger of being shut off: no In past 12 months, lack of transportation kept you from medical appts, meetings, work, or getting things needed for daily living: no In the past 12 mos, have been you worried that your food would run out before you had money to buy more?: never true In the past 12 mos, the food you bought just didn't last and you didn't have money to buy more?: never true Smoking Status: Never smoker Do you use any of these nicotine containing products: None Nicotine containing products detail: Pt smokes 1 cigar every 3 months Second hand tobacco smoke exposure: No How often do you have a drink containing alcohol: 2-4 times a month Alcohol type: beer and wine How many standard drinks containing alcohol do you have on a typical day: 1 or 2 How often do you have six or more drinks on one occasion: Never AUDIT-C Alcohol total score: 2 Non-prescribed substance use: denies use Caffeine: No How often does anyone, including family, friends and others, physically hurt you: never How often does anyone, including family, friends and others, insult or talk down to you: never How often does anyone, including family, friends and others, threaten you with harm: never How often does anyone, including family, friends and others, scream or curse at you: never service: No Meds Home Medications and Allergies Home Medications ?Medication ?Instructions ?Recorded ?Confirmed ?Type gabapentin 800 mg tablet 800 - 1,600 mg PO QHS PRN 10/09/24 02/16/25 History methocarbamol 750 mg tablet 750 - 1,500 mg PO QHS PRN 10/09/24 02/16/25 History pantoprazole 40 mg tablet,delayed 40 mg PO QDAY 10/09/24 02/16/25 History release testosterone cypionate 200 mg/mL 200 mg IM Q7D #20 mL 11/25/24 02/16/25 Rx intramuscular oil (Depo-Testosterone) phentermine 37.5 mg capsule 37.5 mg PO QDAY #30 caps 05/03/25 Rx Allergies Allergy/AdvReac Type Severity Reaction Status Date / Time No Known Drug Allergies Allergy Verified 05/16/25 21:08 Exam Narrative: Exam Narrative: General appearance: Alert, cooperative, and in no distress Eyes: PERRLA, eye lids clear, and sclera white HENT Head: Normocephalic Ears: External ears normal Pulmonary: Breathing nonlabored on room air Cardiovascular Heart: Regular rate Extremities: warm and well perfused Gastrointestinal Abdominal: No scars. Protuberant. He is tender in the right upper quadrant and epigastric region with a positive Araujo sign. Musculoskeletal: Extremities: Upper: Both upper extremities have normal joint range of motion and intact strength. Lower: Both lower extremities have normal joint range of motion and intact strength. Skin: Normal skin color, texture, and turgor. Neurologic: No focal deficits Psychiatric: Alert, oriented, cooperative, normal affect. Const: Vital Signs, click to edit/add: Vital Signs - 24 hr 05/16/25 18:07 05/16/25 20:44 05/16/25 20:45 Temperature 97.5 F L Pulse Rate 89 85 Pulse Rate [Pulse Oximeter] 97 Respiratory Rate 20 Blood Pressure [Ri ght Arm] Blood Pressure [Ri ght Upper Arm] 157/98 H Pulse Oximetry 95 96 96 Oxygen Delivery Me thod Room Air 05/16/25 21:00 05/16/25 21:15 05/16/25 21:30 Temperature Pulse Rate 91 92 93 Pulse Rate [Pulse Oximeter] Respiratory Rate Blood Pressure [Ri ght Arm] Blood Pressure [Ri ght Upper Arm] Pulse Oximetry 97 96 98 Oxygen Delivery Me thod 05/16/25 21:45 05/16/25 22:03 05/16/25 22:15 Temperature Pulse Rate 98 91 91 Pulse Rate [Pulse Oximeter] Respiratory Rate Blood Pressure [Ri ght Arm] Blood Pressure [Ri ght Upper Arm] Pulse Oximetry 96 100 97 Oxygen Delivery Me thod 05/16/25 22:30 05/16/25 22:45 05/16/25 23:00 Temperature Pulse Rate 91 92 96 Pulse Rate [Pulse Oximeter] Respiratory Rate Blood Pressure [Ri ght Arm] Blood Pressure [Ri ght Upper Arm] Pulse Oximetry 96 96 97 Oxygen Delivery Me thod 05/16/25 23:48 05/17/25 03:05 05/17/25 07:00 Temperature 98.6 F 97.4 F L Pulse Rate Pulse Rate [Pulse Oximeter] 100 97 89 Respiratory Rate 20 20 18 Blood Pressure [Ri ght Arm] 141/91 H 164/92 H Blood Pressure [Ri ght Upper Arm] Pulse Oximetry 95 92 Oxygen Delivery Me thod Room Air Room Air 05/17/25 07:00 05/17/25 11:00 Temperature 97.9 F 97.9 F Pulse Rate Pulse Rate [Pulse Oximeter] 97 94 Respiratory Rate 18 16 Blood Pressure [Ri ght Arm] 147/79 H 136/83 Blood Pressure [Ri ght Upper Arm] Pulse Oximetry 97 94 Oxygen Delivery Me thod Room Air Room Air Results Labs Labs: White blood cell count this evening was 12.2. This morning is 6.9. Mild hyponatremia with sodium of 133. Lipase and LFTs were normal last evening and are normal again today. Imaging Abdomen CT scan report/results: report reviewed and image reviewed Abdominal ultrasound report/results: report reviewed and image reviewed Additional studies: CT scan abdomen pelvis done last evening: IMPRESSION : Cholelithiasis with a 2.0 cm calcified gallstone in the gallbladder neck. Dictated by Sean Wilson MD @ 05/16/2025 8:41:06 PM Ultrasound abdomen done last evening: IMPRESSION: Cholelithiasis with mild gallbladder wall thickening and positive sonographic Araujo sign, findings suspicious for acute cholecystitis. Dictated by Toni Wong MD @ 05/16/2025 10:15:12 PM Progress Note:A&P Assessment and plan (1) Acute cholecystitis: Status: Acute (2) Obstructive sleep apnea: Status: Acute Plan The patient is a 39-year-old male who has acute cholecystitis. I explained that the treatment for this is laparoscopic cholecystectomy. We discussed the procedure as well as risks and benefits of surgery which include bleeding, infection, bile leak, conversion to open or injury to other structures, specifically the common bile duct. We also discussed recovery. At this time he does not have evidence of biliary obstruction, therefore intraoperative cholangiogram is not needed. He is agreeable to proceed and signed informed consent. We will plan on surgery pending OR availability today.
--- NOTE | 2025-05-17 16:17 | PM.GSPRC ---
Operative Note Date of procedure: 05/17/25 Pre-op diagnosis: Acute cholecystitis Post-op diagnosis: Same Type of Procedure: Laparoscopic cholecystectomy Indications: The patient is a 39-year-old male with a history of gallstones and intermittent right upper quadrant pain who developed severe epigastric pain yesterday. This came on after eating. The pain was unrelenting and he came in to be evaluated. He was found to have a elevated white blood cell count and findings concerning for early cholecystitis based on ultrasound. I recommended cholecystectomy and he agreed to proceed. Procedure Description: After discussing the risks and benefits of the procedure, the patient signed informed consent.? The operative site was marked and the patient was brought to the operating room and placed on the operating table in supine position.? Care was taken to pad the patient's pressure points.?? The patient was then intubated by anesthesia.?? The operative site was then prepped and draped in the usual sterile fashion.? A time-out was then performed. Entrance to the abdomen was gained via a 5 mm Visiport in the left upper quadrant. The abdomen was insufflated and briefly surveyed for signs of injury. There was none. A 10 mm umbilical port was placed as well as 2 working ports along the right costal margin, all under direct vision. The patient was then placed in reverse Trendelenburg position with the right side up. The gallbladder fundus was noted to be tense. A needle was advanced into the gallbladder, dark bile. Once the gallbladder was decompressed, it was then able to be grasped and retracted cephalad. A small amount of dissection was needed to free omental adhesions from the gallbladder. The patient's liver was significantly enlarged which made difficult to lift the gallbladder to expose the infundibulum. The patient also had a large amount of intra-abdominal fat. I was able to identify the infundibulum and incised the peritoneum. As I did this, it did free the infundibulum of the gallbladder, permitting me to be able to better visualize the area. A combination of hook cautery and blunt dissection was used to carefully dissect out the cystic duct and artery until they could clearly be seen entering the gallbladder without any intervening structures. The gallbladder was dissected off the cystic plate to achieve the critical view. Once this was achieved the cystic duct and artery were each clipped with 2 clips proximally and 1 clip distally and transected with the scissors. Of note, the cystic duct did have a stone impacted in it. This was pushed back into the gallbladder prior to clipping the cystic duct. The gallbladder was then taken off of the liver bed cautery. There was a bleeding vessel along the serosal edge which was controlled with clips. This resulted in excellent hemostasis. The gallbladder was then removed from the abdomen using an Endo-Catch bag. The gallbladder bed was surveyed for hemostasis which appeared adequate. A small amount of bile which had spilled was suctioned from the abdomen. The patient was laid flat. The patient was laid flat. The umbilical port fascia was closed with 0 Vicryl using a Chevy-Sanchez device. The remaining ports were then removed and the abdomen desufflated. The skin was closed with absorbable subcuticular suture. Sterile dressings were applied. Instrument sponge and needle counts were correct at the end of the case. The patient was then woken and transferred to the PACU in stable condition. ? The patient tolerated the procedure well. Findings: 1. Gallbladder with omental adhesions 2. Stone impacted in the cystic duct as well as the gallbladder neck. Surgeon: Hiwot Culp MD Estimated blood loss (mL): 10 Specimen: Other Additional Specimen Information: Gallbladder Condition: stable Disposition: PACU
[2025-05-17] MEDS: PIPERACILLIN/TAZOBACTAM 3.375 GM INJ IVPB (16:20)
[2025-05-17] MEDS: BUPIVACAINE 0.25% 30 ML INJECTION (17:12)
--- NOTE | 2025-05-17 17:39 | P.ANES_ITS ---
Anesthesia Charges Start Date/Time Anesthesia Start Date: 05/17/25 Anesthesia Start Time: 16:08 Stop Date/Time Anesthesia Stop Date: 05/17/25 Anesthesia Stop Time: 17:41 Coding CPT Codes CPT Codes: ANESTH SURG UPPER ABDOMEN - 33541 ([id number]) P3 - PATIENT W/SEVERE SYS DISEASE, QK - CERTIFIED MAINTENANCE WELDER 2-4 CNCRNT ANES PROC, QX - INSTRUCTIONAL CONSULTANT SVC W/ MD MED DIRECTION
--- NOTE | 2025-05-17 17:39 | W.ANESCHARGE ---
Anesthesia Charges Start Date/Time Anesthesia Start Date: 05/17/25 Anesthesia Start Time: 16:08 Stop Date/Time Anesthesia Stop Date: 05/17/25 Anesthesia Stop Time: 17:41 Coding CPT Codes CPT Codes: ANESTH SURG UPPER ABDOMEN - 15443 ([id number]) P3 - PATIENT W/SEVERE SYS DISEASE, QK - PRECISION DANCER 2-4 CNCRNT ANES PROC, QX - STORAGE CENTER MANAGER SVC W/ MD MED DIRECTION
--- NOTE | 2025-05-17 17:49 | P.ANES_ITS ---
Anesthesia Charges Start Date/Time Anesthesia Start Date: 05/17/25 Anesthesia Start Time: 16:08 Stop Date/Time Anesthesia Stop Date: 05/17/25 Anesthesia Stop Time: 17:41 Coding CPT Codes CPT Codes: ANESTH SURG UPPER ABDOMEN - 29346 ([id number]) P3 - PATIENT W/SEVERE SYS DISEASE, QK - HOSPITAL MEDICAL ASSISTANT 2-4 CNCRNT ANES PROC, QX - ROLLER SKATE ASSEMBLER SVC W/ MD MED DIRECTION
--- NOTE | 2025-05-17 17:49 | W.ANESCHARGE ---
Anesthesia Charges Start Date/Time Anesthesia Start Date: 05/17/25 Anesthesia Start Time: 16:08 Stop Date/Time Anesthesia Stop Date: 05/17/25 Anesthesia Stop Time: 17:41 Coding CPT Codes CPT Codes: ANESTH SURG UPPER ABDOMEN - 94801 ([id number]) P3 - PATIENT W/SEVERE SYS DISEASE, QK - DIRECTOR GLOBAL SALES 2-4 CNCRNT ANES PROC, QX - VP CUSTOMER SERVICE SVC W/ MD MED DIRECTION
--- NOTE | 2025-05-17 18:46 | SUR.PHASEI ---
patient met discharge criteria per anesthesia
--- NOTE | 2025-05-17 19:17 | PC.NURSE ---
Pt up to floor after lap chol. at 1830. Patient is alert and oriented. tolerating fluids and crackers. Pain rated at 6/10. PRN diluaded administered. Patient on 2 L of NC.
[2025-05-17] MEDS: HYDROCODONE-ACETAMIN 5-325 MG 1 TAB PO ×2 (20:12→20:42)
--- NOTE | 2025-05-17 22:24 | PC.NURSE ---
d/c note: Pt. AOx4. VSS. Pt. is pleasant & cooperative. Pt. verbalized pain; pain med given- see EMAR. Pt. incision sites C/D/I. Pt. denies N/V & PLAZA. Pt. voided IND and AMB hallway IND. Pt. tolerated regular diet and fluids. Afebrile. Pt. wheeled out by special agent in charge to personal vehicle to home w/ spouse.
== END 2025-05-17 21:13 | disposition home or self-care (01) | DRG 263 ==
LOC: ED 23:02 → MEDSURG 23:04
PROVIDERS: Surgery; Admitting Provider Family Medicine; Emergency Provider Student in an Organized Health Care Education/Training Program; PCP Family Medicine; Visit Provider Family Medicine
PROC: 0FT44ZZ Resection of Gallbladder, Percutaneous Endoscopic Approach (ICD-10-PCS; CPT 47562; principal; 2025-05-17 15:55)
DX: K80.63 Calculus of gallbladder and bile duct with acute cholecystitis with obstruction (principal); G47.33 Obstructive sleep apnea (adult) (pediatric); E66.9 Obesity, unspecified; Z68.41 Body mass index [BMI] 40.0-44.9, adult; M54.9 Dorsalgia, unspecified; Z98.1 Arthrodesis status; G89.29 Other chronic pain
CPT/HCPCS: 00790; 36415; 74177; 76705; 80048; 80053; 80076; 81001; 83690; 84484; 85025; 87631; 88304; 99285; A9270; J0131; J0330; J0665; J1100; J1171; J1885; J2250; J2270; J2405; J2543; J2704; J3010; J3490; J7120; Q9967

== ENCOUNTER 2025-06-30 08:56 | Outpatient (CLI) | payer BC, SELFPAY | END 2025-06-30 08:57 | disposition home or self-care (01) | LOC: NFLDREF 07-02 10:54 | PROVIDERS: PCP Family Medicine; Referring Provider Family Medicine; Visit Provider Family Medicine | DX: E29.1 Testicular hypofunction (principal) | CPT/HCPCS: 84270; 84402; 84403 ==